=== PATIENT | female | born 1955 | race African-American/Black ===

== ENCOUNTER 2019-04-21 10:12 | Outpatient (CLI) | payer OTHER, SELFPAY ==
--- NOTE | 2019-04-21 10:21 | MM_ITS ---
WS: [id number] BILATERAL DIGITAL SCREENING MAMMOGRAM WITH CAD CLINICAL INFORMATION: SCREENING HISTORY: Screening mammogram. No current complaints. COMPARISON: July 26, 2017 TECHNIQUE: Bilateral CC and MLO views. FINDINGS: Fatty-replaced breasts bilaterally. No suspicious focal mass, asymmetry, calcifications, or software applications architect ural distortion. No evidence of malignancy. MM/[place] [id number] IMPRESSION: BI-RADS: 1-Negative FOLLOW UP: 1 Year Follow-up Recommend return to annual screening mammography.
== END 2019-04-21 10:13 | disposition home or self-care (01) ==
LOC: RADSHAW 10:15
PROVIDERS: Family Provider Internal Medicine; Visit Provider Internal Medicine
DX: Z12.31 Encounter for screening mammogram for malignant neoplasm of breast (principal)
CPT/HCPCS: 77067

== ENCOUNTER 2020-07-30 13:44 | Outpatient (CLI) | payer OTHER, SELFPAY ==
--- NOTE | 2020-07-30 14:05 | MM_ITS ---
WS: [id number] BILATERAL DIGITAL SCREENING MAMMOGRAPHY WITH CAD CLINICAL INFORMATION: SCREENING HISTORY: Screening mammogram. No current complaints. COMPARISON: April 21, 2019 TECHNIQUE: Bilateral CC and MLO views. FINDINGS: Scattered fibroglandular densities bilaterally. No suspicious focal mass, asymmetry, calcifications, or architectural distortion. No evidence of malignancy. MM/[place] [id number] IMPRESSION: BI-RADS: 1-Negative FOLLOW UP: 1 Year Follow-up Recommend return to annual screening mammography.
== END 2020-07-30 13:45 | disposition home or self-care (01) ==
LOC: RADSHAW 13:49
PROVIDERS: PCP Internal Medicine; Visit Provider Internal Medicine
DX: Z12.31 Encounter for screening mammogram for malignant neoplasm of breast (principal)
CPT/HCPCS: 77067

== ENCOUNTER 2021-03-28 12:05 | Emergency (ER) | payer OTHER, MEDICARE, SELFPAY ==
[2021-03-28 12:58] VITALS: BP 170/94; PULSE 72; RESP 18; TEMP 36.6; O2SAT 99; BMI 37.5
[2021-03-28 13:32] VITALS: BP 170/94; PULSE 72; RESP 18; TEMP 36.6; O2SAT 99
--- NOTE | 2021-03-28 13:46 | CT_ITS ---
WS: [id number] CT ABDOMEN PELVIS TECHNIQUE: Contrast-enhanced CT of the abdomen and pelvis with coronal and sagittal reformatted image s. CLINICAL INFORMATION: epigastric abdominal pain, N/V COMPARISON: None. DLP: 1733.[address] scans at [facility] use at least one of these dose optimization techniques: automated e xposure control; mA and/or kV adjustment per patient size (includes targeted exams where dose is matc hed to clinical indication); or iterative reconstruction. FINDINGS: Mild diffuse fatty infiltration the liver. Normal portal vein and splenic vein. Normal gallbladder. N ormal spleen. Tiny esophageal hiatal hernia. Diffuse gastric wall thickening can be seen with gastrit is. No evidence of small or large bowel obstruction. Normal portal vein and splenic vein. Adrenal gla nds are normal. Normal renal parenchymal enhancement. No hydronephrosis.Minimal inflammatory strandin g at the head of the pancreas may be due to pancreatitis. Recommend correlation with pancreatic enzym es. No peripancreatic fluid. Normal gallbladder. Tiny fat-containing umbilical hernia. Sigmoid diverticulosis. No evidence of acut e diverticulitis. No free fluid in the abdomen or pelvis. Disc space narrowing L5-S1. Prior hysterec enmanuel. Prominence 13 mm LEFT inguinal lymph nodes nonspecific but may be reactive. CT/CT abdomen pelvis w con* [id number] IMPRESSION: 1. Diffuse fatty infiltration liver. 2. Minimal inflammatory stranding at the head of the pancreas may be due to pa ncreatitis. Recommend correlation with pancreatic enzymes. 3. Tiny esophageal hiatal hernia. 4. Diffuse gastric wall thickening can be seen with gastritis. 5. No small or large bowel obstruction. 6. Diverticulosis. No evidence of acute diverticulitis. 7. Tiny umbilical hernia. 8. Prior hysterectomy. 9. Prominence 13 mm LEFT inguinal lymph nodes nonspecific but may be reactive.
--- NOTE | 2021-03-28 13:46 | ECG_ITS ---
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 Measurements Intervals [place] Rate: 59 P: 43 SC: 167 QRS: -5 QRSD: 92 T: 31 QT: 416 QTc: 413 Interpretive Statements SINUS BRADYCARDIA LOW QRS VOLTAGE IN PRECORDIAL LEADS [QRS DEFLECTION < 1.0 mV IN CHEST LEADS] POSSIBLE ANTERIOR MYOCARDIAL INFARCTION , PROBABLY OLD [30 ms Q WAVE IN V3/V4, OR R < 0.2 mV IN V4] No previous ECG available for comparison Electronically Signed On 03-28-2021 18:06:41 [employer] MICA by Saulo Hamilton M.D. [id number]
--- NOTE | 2021-03-28 13:46 | W.ED.ABDPA2 ---
Documented by User: GUI Marcano 04/02/21 07:02 HPI - Abdominal Pain General: Chief Complaint: Abdominal Pain Stated Complaint: Possible breakthrough of hernia Time Seen by Provider: 03/28/21 13:10 Source: patient Mode of arrival: ambulatory Limitations: no limitations History of Present Illness: Patient is a 65-year-old female who presents to ED today with a complaint of epigastric abdominal pain that initially began 3 to 4 days ago. Patient states she has a known hiatal hernia and feels like this is acutely worsened. She states 2-3 days ago she had multiple episodes of nonbloody and nonbilious emesis as well as had some diarrhea. She states these have subsided but the abdominal pain is persistent. She has been taking her omeprazole as prescribed. She does not complain of any shortness of breath or chest pain. She does have some vague complaints of pain to her shoulders and right neck that she thinks could somehow be related to shingles ? MD elicited complaint: abdominal pain Associated Symptoms: Reports diarrhea, nausea and vomiting; Denies chills, dysuria, fever(s), hematochezia, hematemesis, melena and syncope Review of Systems Const: Denies: fever(s), chills, body aches, fatigue or malaise Card: Denies: chest pain, palpitations, irregular heart rhythm, edema, swelling of feet/ankles, lightheadedness, syncope, pre-syncope, dyspnea on exertion, orthopnea, leg pain with exertion or acrocyanosis Resp: Denies: dyspnea, productive cough, non-productive cough, wheezing, hemoptysis or chest congestion GI: Reports: abdominal pain, nausea, vomiting and diarrhea; Denies: hematemesis, hematochezia or melena : Denies: flank pain, difficulty voiding, dysuria, urinary frequency or urinary urgency Musc: Denies: back pain or extremity pain Skin/Breast: Denies: rash Neuro: Denies: headache(s), numbness in extremities, weakness in extremities, sensory changes or dizziness Physical Exam Const: COMMON NORMALS: no acute distress, patient oriented x3, no limitations and alert GENERAL APPEARANCE: cooperative NUTRITIONAL APPEARANCE: overweight ORIENTATION/CONSCIOUSNESS: Yes awake, Yes oriented to person, Yes oriented to place and Yes oriented to time HENMT: COMMON NORMALS: normocephalic and atraumatic HEAD & SCALP: normocephalic and atraumatic Neck/C-Spine: GENERAL: Yes normal visual inspection Chest: COMMONS NORMALS: normal inspection of the chest and normal palpation of entire chest wall Resp: COMMON NORMALS: normal respiratory effort and clear to auscultation bilaterally AUSCULTATION: clear to auscultation bilaterally Cardio: COMMON NORMALS: regular rate and regular rhythm RATE: regular rate RHYTHM: regular rhythm GI: COMMON NORMALS: Normal to inspection, nondistended, normoactive bowel sounds present, Soft to palpation, No hepatosplenomegaly present and no masses PALPATION: Yes Soft to palpation, Yes Tenderness to palpation present (GI) (epigastric) and Yes No hepatosplenomegaly present : COMMON NORMALS: Yes no CVA tenderness BLADDER/KIDNEY EXAM: Yes no CVA tenderness Back/Pelvis: COMMON NORMALS: no CVA tenderness, thoracic and lumbar spine normal to inspection, no thoracic nor lumbar tenderness and thoraco-lumbar ROM normal Extremity: COMMON NORMALS: normal to inspection, no clubbing, cyanosis or edema, no calf tenderness and no pedal edema GENERAL: Yes normal exam except as noted Neuro: COMMON NORMALS: patient oriented x3, moves all extremities, no focal motor deficits and no sensory deficits noted SENSORIUM/ORIENTATION: Yes alert, Yes oriented to person, Yes oriented to place and Yes oriented to time Skin: COMMON NORMALS: no rashes or lesions noted GENERAL SKIN EXAM: no rashes or lesions noted Course Vital Signs: Vital signs: Vital Signs Temperature 97.8 F 03/28/21 15:14 Pulse Rate 67 03/28/21 16:38 Respiratory Rate 16 03/28/21 16:38 Blood Pressure 114/74 03/28/21 16:38 Pulse Oximetry 98 03/28/21 16:38 MDM - Abdominal Pain Medical Decision Making Patient is a 65-year-old female here with complaints of epigastric pain. Patient appears in no acute distress. Her vital signs are stable. Lab work is unremarkable. Chest pain work-up initiated secondary to agent complaints of epigastric pain with vague complaints to neck and shoulder. EKG without ischemic changes. Baseline troponin is negative. CXR is normal. CT of her abdomen/pelvis shows a fatty liver, possible minimal inflammatory stranding around the pancreas although her lipase is normal, mild gastritis, and a small hiatal hernia. She states she is supposed to be taking her PPI twice daily but has only been taking it once a day. Recommend she begin taking this twice daily and follow-up with her primary care provider if symptoms persist. I do not see anything emergent at this time to be causing her discomfort. Strict return to ED precautions verbally given. Lab Data I reviewed the patient's lab results. : 03/28/21 15:06 03/28/21 15:06 Labs/Radiology: Radiology Impressions Abdomen/Pelvis CT 03/28/21 13:46 IMPRESSION: 1. Diffuse fatty infiltration liver. 2. Minimal inflammatory stranding at the head of the pancreas may be due to pancreatitis. Recommend correlation with pancreatic enzymes. 3. Tiny esophageal hiatal hernia. 4. Diffuse gastric wall thickening can be seen with gastritis. 5. No small or large bowel obstruction. 6. Diverticulosis. No evidence of acute diverticulitis. 7. Tiny umbilical hernia. 8. Prior hysterectomy. 9. Prominence 13 mm LEFT inguinal lymph nodes nonspecific but may be reactive. Chest X-Ray 03/28/21 14:00 IMPRESSION: No acute findings. Laboratory Results WBC 7.3 10^3/uL (4.0-10.0) 03/28/21 15:06 RBC 4.73 10^6/uL (4.1-5.3) 03/28/21 15:06 Hgb 14.5 g/dL (11.5-15.3) 03/28/21 15:06 Hct 44.1 % (37.0-47.0) 03/28/21 15:06 MCV 93.2 fl (81-99) 03/28/21 15:06 MCH 30.7 pg (28.0-34.0) 03/28/21 15:06 MCHC 32.9 g/dL (30.0-36.0) 03/28/21 15:06 RDW 12.6 % (12.1-15.1) 03/28/21 15:06 Plt Count 247 10^3/cmm (130-400) 03/28/21 15:06 MPV 11.0 fL (7.4-10.4) H 03/28/21 15:06 Neut % (Auto) 65.5 % 03/28/21 15:06 Lymph % (Auto) 26.6 % 03/28/21 15:06 [place] % (Auto) 7.0 % 03/28/21 15:06 Eos % (Auto) 0.3 % 03/28/21 15:06 Baso % (Auto) 0.5 % 03/28/21 15:06 Neut # (Auto) 4.80 10^3/uL (1.8-7.7) 03/28/21 15:06 Lymph # (Auto) 2.0 10^3/uL (0.8-4.8) 03/28/21 15:06 [place] # (Auto) 0.5 10^3/uL (0.2-0.9) 03/28/21 15:06 Eos # (Auto) 0.0 10^3/uL (0.0-0.8) 03/28/21 15:06 Baso # (Auto) 0.0 10^3/uL (0.0-0.1) 03/28/21 15:06 Nucleated RBC % (auto) 0 % 03/28/21 15:06 Nucleated RBCs # 0.0 /100WBC 03/28/21 15:06 Sodium 140 mmol/L (136-145) 03/28/21 15:06 Potassium 4.0 mmol/L (3.5-5.1) 03/28/21 15:06 Chloride 103 mmol/L (98-107) 03/28/21 15:06 Carbon Dioxide 24 mmol/L (22-29) 03/28/21 15:06 Anion Gap 17.0 (5-19) 03/28/21 15:06 BUN 18 mg/dL (8-23) 03/28/21 15:06 Creatinine 0.8 mg/dL (0.5-0.9) 03/28/21 15:06 GFR Calculation 86.6 mL/min (90-130) L 03/28/21 15:06 Glucose 107 mg/dL (65-115) 03/28/21 15:06 Calculated Osmolality 292 mOsm/kg (285-295) 03/28/21 15:06 Calcium 9.8 mg/dL (8.5-10.5) 03/28/21 15:06 Total Bilirubin 0.4 mg/dL (0.15-1.2) 03/28/21 15:06 AST 52 U/L (0-32) H 03/28/21 15:06 ALT 52 U/L (0-33) H 03/28/21 15:06 Alkaline Phosphatase 157 IU/L (35-105) H 03/28/21 15:06 Troponin T Baseline 10 ng/L (0-10) 03/28/21 15:06 Total Protein 7.4 g/dL (6.6-8.7) 03/28/21 15:06 Albumin 4.9 g/dL (3.5-5.2) 03/28/21 15:06 Globulin 2.5 g/dL (1.3-4.6) 03/28/21 15:06 Lipase 18 U/L (13-60) 03/28/21 15:06 Urine Color Yellow (Yellow) 03/28/21 14:22 Urine Appearance Clear (CLEAR) 03/28/21 14:22 Urine pH 5 (5-7) 03/28/21 14:22 Ur Specific [place] 1.025 (1.005-1.030) 03/28/21 14:22 Urine Protein Neg (Negative) 03/28/21 14:22 Urine Glucose (UA) Norm (Normal) 03/28/21 14:22 Urine Ketones 2+ (Negative) H 03/28/21 14:22 Urine Blood Neg (Negative) 03/28/21 14:22 Urine Nitrate Negative (Negative) 03/28/21 14:22 Urine Bilirubin Neg (Negative) 03/28/21 14:22 Urine Urobilinogen Norm mg/dL (Negative) 03/28/21 14:22 Ur Leukocyte Esterase Negative (Negative) 03/28/21 14:22 Discharge Plan Discharge Patient Disposition: Home Clinical Impression: Abdominal pain, epigastric Condition: Stable Discharge Orders: Discharge ED (Routine); Ordered 03/28/21 Ordered By: Brittany Simmons Referrals: Vivian Castorena M.D [Primary Care Provider] - Patient Instructions: Abdominal Pain (ED) Activity Restrictions/Additional Instructions: As we discussed we will have case management set you up with a primary care provider. Please return to the emergency department for worsening or severe abdominal pain, repetitive episodes of vomiting, bloody vomit, fevers, severe chest or back pain, or any other concerns you may have. Hope you begin to feel better soon. Coding Level of Care Code ED Pollution Control Chemist for Chg Fwd Exam Comprehensive Documented by User: Filemon Matt DO 04/04/21 05:57 HPI - Abdominal Pain General: Chief Complaint: Abdominal Pain Stated Complaint: Possible breakthrough of hernia Time Seen by Provider: 03/28/21 13:10 Course Vital Signs: Vital signs: Vital Signs Temperature 97.8 F 03/28/21 15:14 Pulse Rate 67 03/28/21 16:38 Respiratory Rate 16 03/28/21 16:38 Blood Pressure 114/74 03/28/21 16:38 Pulse Oximetry 98 03/28/21 16:38 MDM - Abdominal Pain Medical Decision Making Patient is a 65-year-old female here with complaints of epigastric pain. Patient appears in no acute distress. Her vital signs are stable. Lab work is unremarkable. Chest pain work-up initiated secondary to agent complaints of epigastric pain with vague complaints to neck and shoulder. EKG without ischemic changes. Baseline troponin is negative. CXR is normal. CT of her abdomen/pelvis shows a fatty liver, possible minimal inflammatory stranding around the pancreas although her lipase is normal, mild gastritis, and a small hiatal hernia. She states she is supposed to be taking her PPI twice daily but has only been taking it once a day. Recommend she begin taking this twice daily and follow-up with her primary care provider if symptoms persist. I do not see anything emergent at this time to be causing her discomfort. Strict return to ED precautions verbally given. Chart reviewed and patient discussed with midlevel. Agree with assessment and plan. Lab Data : 03/28/21 15:06 03/28/21 15:06 Labs/Radiology: Radiology Impressions Abdomen/Pelvis CT 03/28/21 13:46 IMPRESSION: 1. Diffuse fatty infiltration liver. 2. Minimal inflammatory stranding at the head of the pancreas may be due to pancreatitis. Recommend correlation with pancreatic enzymes. 3. Tiny esophageal hiatal hernia. 4. Diffuse gastric wall thickening can be seen with gastritis. 5. No small or large bowel obstruction. 6. Diverticulosis. No evidence of acute diverticulitis. 7. Tiny umbilical hernia. 8. Prior hysterectomy. 9. Prominence 13 mm LEFT inguinal lymph nodes nonspecific but may be reactive. Chest X-Ray 03/28/21 14:00 IMPRESSION: No acute findings. Laboratory Results WBC 7.3 10^3/uL (4.0-10.0) 03/28/21 15:06 RBC 4.73 10^6/uL (4.1-5.3) 03/28/21 15:06 Hgb 14.5 g/dL (11.5-15.3) 03/28/21 15:06 Hct 44.1 % (37.0-47.0) 03/28/21 15:06 MCV 93.2 fl (81-99) 03/28/21 15:06 MCH 30.7 pg (28.0-34.0) 03/28/21 15:06 MCHC 32.9 g/dL (30.0-36.0) 03/28/21 15:06 RDW 12.6 % (12.1-15.1) 03/28/21 15:06 Plt Count 247 10^3/cmm (130-400) 03/28/21 15:06 MPV 11.0 fL (7.4-10.4) H 03/28/21 15:06 Neut % (Auto) 65.5 % 03/28/21 15:06 Lymph % (Auto) 26.6 % 03/28/21 15:06 [place] % (Auto) 7.0 % 03/28/21 15:06 Eos % (Auto) 0.3 % 03/28/21 15:06 Baso % (Auto) 0.5 % 03/28/21 15:06 Neut # (Auto) 4.80 10^3/uL (1.8-7.7) 03/28/21 15:06 Lymph # (Auto) 2.0 10^3/uL (0.8-4.8) 03/28/21 15:06 [place] # (Auto) 0.5 10^3/uL (0.2-0.9) 03/28/21 15:06 Eos # (Auto) 0.0 10^3/uL (0.0-0.8) 03/28/21 15:06 Baso # (Auto) 0.0 10^3/uL (0.0-0.1) 03/28/21 15:06 Nucleated RBC % (auto) 0 % 03/28/21 15:06 Nucleated RBCs # 0.0 /100WBC 03/28/21 15:06 Sodium 140 mmol/L (136-145) 03/28/21 15:06 Potassium 4.0 mmol/L (3.5-5.1) 03/28/21 15:06 Chloride 103 mmol/L (98-107) 03/28/21 15:06 Carbon Dioxide 24 mmol/L (22-29) 03/28/21 15:06 Anion Gap 17.0 (5-19) 03/28/21 15:06 BUN 18 mg/dL (8-23) 03/28/21 15:06 Creatinine 0.8 mg/dL (0.5-0.9) 03/28/21 15:06 GFR Calculation 86.6 mL/min (90-130) L 03/28/21 15:06 Glucose 107 mg/dL (65-115) 03/28/21 15:06 Calculated Osmolality 292 mOsm/kg (285-295) 03/28/21 15:06 Calcium 9.8 mg/dL (8.5-10.5) 03/28/21 15:06 Total Bilirubin 0.4 mg/dL (0.15-1.2) 03/28/21 15:06 AST 52 U/L (0-32) H 03/28/21 15:06 ALT 52 U/L (0-33) H 03/28/21 15:06 Alkaline Phosphatase 157 IU/L (35-105) H 03/28/21 15:06 Troponin T Baseline 10 ng/L (0-10) 03/28/21 15:06 Total Protein 7.4 g/dL (6.6-8.7) 03/28/21 15:06 Albumin 4.9 g/dL (3.5-5.2) 03/28/21 15:06 Globulin 2.5 g/dL (1.3-4.6) 03/28/21 15:06 Lipase 18 U/L (13-60) 03/28/21 15:06 Urine Color Yellow (Yellow) 03/28/21: Urine Appearance Clear (CLEAR) 03/28/21: Urine pH 5 (5-7) 03/28/21 14:22 Ur Specific [place] 1.025 (1.005-1.030) 03/28/21 14:22 Urine Protein Neg (Negative) 03/28/21 14:22 Urine Glucose (UA) Norm (Normal) 03/28/21 14:22 Urine Ketones 2+ (Negative) H 03/28/21 14:22 Urine Blood Neg (Negative) 03/28/21 14:22 Urine Nitrate Negative (Negative) 03/28/21 14:22 Urine Bilirubin Neg (Negative) 03/28/21 14:22 Urine Urobilinogen Norm mg/dL (Negative) 03/28/21 14:22 Ur Leukocyte Esterase Negative (Negative) 03/28/21 14:22 Discharge Plan Discharge Patient Disposition: Home Clinical Impression: Abdominal pain, epigastric Condition: Stable Discharge Orders: Discharge ED (Routine); Ordered 03/28/21 Ordered By: Brittany Simmons Referrals: Vivian Castorena M.D [Primary Care Provider] - Patient Instructions: Abdominal Pain (ED) Activity Restrictions/Additional Instructions: As we discussed we will have case management set you up with a primary care provider. Please return to the emergency department for worsening or severe abdominal pain, repetitive episodes of vomiting, bloody vomit, fevers, severe chest or back pain, or any other concerns you may have. Hope you begin to feel better soon. Coding Level of Care Code ED Pollution Control Chemist for Paul Fwwhitney Exam Comprehensive
--- NOTE | 2021-03-28 14:00 | XRR_ITS ---
PROCEDURE INFORMATION: Exam: XR Chest Exam date and time: 03/28/2021 2:00 PM Age: 65 years old Clinical indication: Other: Upper abdominal pain; Patient HX: Hiatal hernia protruding TECHNIQUE: Imaging protocol: XR of the chest. Views: 1 view. COMPARISON: MRI Shoulder w/o LEFT* [id number] 10/01/2014 12:59 PM FINDINGS: Lungs: No consolidation. Pleural spaces: No pleural effusion. No pneumothorax. Heart/Mediastinum: No cardiomegaly. Bones/joints: Visualized osseous structures are intact. XR/XR chest 1V portable [id number] IMPRESSION: No acute findings.
[2021-03-28 14:42] LABS: Add Urine Microscopic? NO; Charge for UA Resulting for Rev
[2021-03-28 14:55] LABS: Bilirubin Urine Neg (Negative); Blood Urine Neg (Negative); Glucose Urine UA Norm (Normal); Ketones Urine 2+ (Negative); Leukocyte Esterase Urine Negative (Negative); Nitrate Urine Negative (Negative); Protein Urine Neg (Negative); Specific Gravity, Urine 1.025 (1.005-1.030); Urine Appearance Clear (CLEAR); Urine Color Yellow (Yellow); Urobilinogen Urine Norm (Negative); pH Urine 5 (5-7)
[2021-03-28 15:14] VITALS: BP 170/94; PULSE 72; RESP 18; TEMP 36.6; O2SAT 99
[2021-03-28 15:16] LABS: Basophils % 0.5 %; Eosinophils % 0.3 %; Hematocrit 44.1 % (37.0-47.0); Hemoglobin 14.5 g/dL (11.5-15.3); Lymphocytes % 26.6 %; Mean Corpuscular HGB Conc 32.9 g/dL (30.0-36.0); Mean Corpuscular Hemoglobin 30.7 pg (28.0-34.0); Mean Corpuscular Volume 93.2 fl (81-99); Monocytes # 0.5 10^3/uL (0.2-0.9); Neutrophils % 65.5 %; Nucleated Red Blood Cells % 0 %; Platelet Count 247 10^3/cmm (130-400); Red Blood Count 4.73 10^6/uL (4.1-5.3); Red Cell Distribution Width 12.6 % (12.1-15.1); White Blood Count 7.3 10^3/uL (4.0-10.0)
--- NOTE | 2021-03-28 15:46 | ECG_ITS ---
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 Measurements Intervals [place] Rate: 63 P: 37 VA: 176 QRS: -18 QRSD: 99 T: 30 QT: 398 QTc: 408 Interpretive Statements SINUS RHYTHM LOW QRS VOLTAGE IN PRECORDIAL LEADS [QRS DEFLECTION < 1.0 mV IN CHEST LEADS] MINIMAL VOLTAGE CRITERIA FOR LVH, CONSIDER NORMAL VARIANT [MEETS CRITERIA IN ONE OF: R(aVL), S(V1), R(V5), R(V5/V6)+S(V1)] POSSIBLE ANTERIOR MYOCARDIAL INFARCTION , PROBABLY OLD [30 ms Q WAVE IN V3/V4, OR R < 0.2 mV IN V4] Compared to ECG 03/28/2021 14:27:34 Sinus bradycardia no longer present Myocardial infarct finding still present Electronically Signed On 03-28-2021 18:07:49 PATTERN CHANGER by Saulo Hamilton M.D. [id number]
[2021-03-28 15:49] LABS: Alanine Aminotransferase 52 U/L (0-33); Albumin Level 4.9 g/dL (3.5-5.2); Alkaline Phosphatase 157 IU/L (35-105); Blood Urea Nitrogen 18 mg/dL (8-23); Calcium 9.8 mg/dL (8.5-10.5); Carbon Dioxide 24 mmol/L (22-29); Chloride 103 mmol/L (98-107); Creatinine Clr Calc Pharmacy 86.7244; Globulin 2.5 g/dL (1.3-4.6); Glomerular Filtration Rate 86.6 mL/min (90-130); Glucose 107 mg/dL (65-115); Lipase 18 U/L (13-60); Osmolality Calculated 292 mOsm/kg (285-295); Sodium 140 mmol/L (136-145); Total Bilirubin 0.4 mg/dL (0.15-1.2); Total Protein 7.4 g/dL (6.6-8.7)
[2021-03-28 15:51] LABS: Troponin(5th) Baseline 10 ng/L (0-10)
[2021-03-28 15:55] LABS: Aspartate Amino Transferase 52 U/L (0-32)
[2021-03-28] MEDS: iohexol 300 mg/mL 100 mL Btl IV (16:11)
[2021-03-28 16:38] VITALS: BP 114/74; PULSE 67; RESP 16; O2SAT 98
--- NOTE | 2021-04-09 09:57 | DCPLANNER ---
late entry - spring encaser had message to speak with patient about getting a primary care physician. poultry barn manager was unable to speak with patient at this time, and unable to leave a voicemail.
== END 2021-03-28 17:16 | disposition home or self-care (01) ==
PROVIDERS: Emergency Provider Physician Assistant; PCP Internal Medicine
DX: R10.13 Epigastric pain (principal)
CPT/HCPCS: 71045; 74177; 80053; 81003; 83690; 84484; 85025; 93005; 99283; Q9967

== ENCOUNTER 2021-08-12 10:52 | Outpatient (CLI) | payer OTHER, SELFPAY ==
--- NOTE | 2021-08-12 11:00 | MM_ITS ---
WS: [id number] BILATERAL SCREENING DIGITAL BREAST TOMOSYNTHESIS MAMMOGRAM WITH CAD HISTORY: SCREENING COMPARISON: 07/30/2020 and 04/21/2019 Bilateral CC and MLO views with tomosynthesis and synthetic mammography submitted. Computer aided det ection analyzed. Breast composition: There are scattered areas of fibroglandular density. No suspicious masses, microc alcifications or architectural distortion. MM/[place] [id number] IMPRESSION: BI-RADS: 1-Negative FOLLOW UP: 1 Year Follow-up
== END 2021-08-12 10:53 | disposition home or self-care (01) ==
PROVIDERS: PCP Internal Medicine; Visit Provider Internal Medicine
DX: Z12.31 Encounter for screening mammogram for malignant neoplasm of breast (principal)
CPT/HCPCS: 77063; 77067

== ENCOUNTER 2023-05-09 10:37 | Outpatient (CLI) | payer OTHER, SELFPAY ==
--- NOTE | 2023-05-09 11:00 | MM_ITS ---
WS: [id number] DIAGNOSTIC BILATERAL DIGITAL BREAST TOMOSYNTHESIS MAMMOGRAPHY WITH CAD Bilateral breast ultrasound, limited HISTORY: CRUSHING PAIN BILAT COMPARISON: 08/12/2021 and 07/30/2020 TECHNIQUE: Bilateral craniocaudad, mediolateral oblique, and mediolateral views are submitted with to mosynthesis and SM. Spot compression LEFT and RIGHT MLO. Computer aided detection utilized. Breast composition: The breasts are almost entirely fatty. No suspicious mass or calcification. No sk in thickening. No abnormality. Bilateral breast ultrasound, limited. Ultrasound of the each breast in the area of pain is performed. There is no abnormality identified. IMPRESSION: MM/[place] [id number] BI-RADS: 1-Negative FOLLOW UP: 1 Year Follow-up
--- NOTE | 2023-05-09 11:40 | US_ITS ---
WS: [id number] DIAGNOSTIC BILATERAL DIGITAL BREAST TOMOSYNTHESIS MAMMOGRAPHY WITH CAD Bilateral breast ultrasound, limited HISTORY: CRUSHING PAIN BILAT COMPARISON: 08/12/2021 and 07/30/2020 TECHNIQUE: Bilateral craniocaudad, mediolateral oblique, and mediolateral views are submitted with to mosynthesis and SM. Spot compression LEFT and RIGHT MLO. Computer aided detection utilized. Breast composition: The breasts are almost entirely fatty. No suspicious mass or calcification. No sk in thickening. No abnormality. Bilateral breast ultrasound, limited. Ultrasound of the each breast in the area of pain is performed. There is no abnormality identified. IMPRESSION: US/US breast BI limited* [id number] BI-RADS: 1-Negative FOLLOW UP: 1 Year Follow-up
== END 2023-05-09 10:38 | disposition home or self-care (01) ==
LOC: RAD 10:39
PROVIDERS: PCP Internal Medicine; Visit Provider Hospitalist
DX: N64.4 Mastodynia (principal)
CPT/HCPCS: 76642; 77062; G0279

== ENCOUNTER 2023-06-15 10:58 | Outpatient (CLI) | payer OTHER, SELFPAY ==
--- NOTE | 2023-06-15 | ECG_ITS ---
[facility] Test Date: 2023-06-15 Pat Name: Kerri Oh Department: Room: Gender: Female Employment Security Officer: : 1955 Requested By: Manuel Brambila Order Number: [id number] Rivera MD: Saulo Hamilton M.D. Interpretive Statements NAME OF STUDY: TREADMILL STRESS TEST INDICATION: [Chest Pain] EXERCISE DATA: The patient was exercised by Lauro protocol. Baseline heart rate was 91 beats per minute. Baseline blood pressure was 146/83 millimeters of mercury. Maximal predicted heart rate was 151 beats per minute. Maximum heart rate achieved was 152, which was 100% of the maximum predicted heart rate. Maximum blood pressure was 146/75 millimeters of mercury. Total exercise time was 3 minutes and 40 seconds. Maximum METs achieved was 7. The reason for ending the test was completion of protocol. The patient complained of shortness of breath, chest discomfort and leg fatigue during the stress test, which then resolved at the end of the test. ELECTROCARDIOGRAM: BASELINE: Showed sinus rhythm, normal axis, no significant ST-T changes at the baseline noted. [] EXERCISE: At the peak exercise level, [] Significant artifact noted at exercise. Can not be interpreted for ruling out ischemia RECOVERY: During the recovery period, heart rate dropped appropriately. No significant ST-T changes in the recovery suggestive of ischemia noted. [] CONCLUSION: 1. Exercise capacity is fair 2. Heart rate response was appropriate 3. Blood pressure response was appropriate 4. Symptoms suggestive of ischemia 5. Stress test is indeterminate because significant artifact at exercise making EKG uninterpretable. However patient did have chest pain symptoms. Recommend stress test with imaging for assessing ischemia Electronically Signed On 07-03-2023 9:17:54 CDT by Saulo Hamilton M.D. [email or web address] [id number]
--- NOTE | 2023-06-15 11:36 | USCV_ITS ---
Oh Kerri Age: 67 Gender: F : 1955 Exam Date: 06/15/2023 11:46 Ordering Phys: Manuel Brambila MD Technologist: Anton Coffey Exam Location: [facility] [place] Indication: occasional chest pressure BP: 114 / 74 HR: 56 Rhythm: Sinus Technical Quality: Adequate MEASUREMENTS (Male / Female) Normal Values 2D ECHO LV Diastolic Diameter PLAX 5.4 cm 4.2 - 5.9 / 3.9 - 5.3 cm IVS Diastolic Thickness 1.0 cm 0.6 - 1.0 / 0.6 - 0.9 cm IVS Systolic Thickness 1.6 cm LVPW Diastolic Thickness 1.4 cm 0.6 - 1.0 / 0.6 - 0.9 cm LVPW Systolic Thickness 1.7 cm LVOT Diameter 2.0 cm LV Ejection Fraction 2D Teich 75.2 % LV Ejection Fraction MOD 2C 55.9 % LV Ejection Fraction 2C AL 59.8 % LA Diameter 3.9 cm RA Systolic Volume 4C AL 23.8 ml RA Systolic Volume 4C MOD 23.3 ml LA Sys Volume AL 52.3 cm cubed LA Sys Volume Index AL 23.1 cm cubed/m squared Aorta at Sinotubular Diameter 2.5 cm M-MODE LA Ao Ratio MM 1.3 AV Cusp Separation MM 2.0 cm DOPPLER AV Peak Velocity 95.0 cm/s LVOT Peak Velocity 83.0 cm/s AV Area Cont Eq vti 2.6 cm squared AV Area Cont Eq pk 2.7 cm squared MV Peak Velocity 89.0 cm/s MV Area PHT 4.0 cm squared Mitral E to A Ratio 0.8 TV Peak Velocity 174.0 cm/s TR Peak Velocity 201.0 cm/s TR Peak Gradient 16.2 mmHg TR Mean Velocity 153.0 cm/s TR Mean Gradient 10.1 mmHg TR Velocity Time Integral 56.4 cm PV Peak Velocity 75.0 cm/s RV Ejection Time 0.3 s FINDINGS Left Ventricle Left ventricle is normal in size. LV systolic function is normal with EF of 50-55%. No regional wall motion abnormalities are seen. Grade 1 diastolic dysfunction. Right Ventricle Normal in size and function Right Atrium Normal in size Left Atrium Normal in size Mitral Valve Structurally normal mitral valve. Trace mitral regurgitation Aortic Valve Aortic valve is thickened. No significant stenosis or regurgitation. Tricuspid Valve Trace tricuspid regurgitation. Insufficient TR jet to calculate RVSP. Pulmonic Valve Not well visualized Pericardium Normal Aorta Normal in size IVC Not well visualized CONCLUSIONS LV systolic function is normal with EF of 50 to 55%. Grade 1 diastolic dysfunction. Trace mitral regurgitation Trace tricuspid regurgitation No comparison studies are available. Saulo Hamilton MD (Electronically Signed) Final Date: 24 Jun 2023 14:11 S
[2023-06-15 12:27] VITALS: BMI 27.3
[2023-06-15 13:29] VITALS: BP 116/73; PULSE 68
== END 2023-06-15 10:59 | disposition home or self-care (01) ==
LOC: CDL 10:59
PROVIDERS: PCP Internal Medicine; Visit Provider Hospitalist
DX: R07.9 Chest pain, unspecified (principal)
CPT/HCPCS: 93017; 93306

== ENCOUNTER 2023-08-30 13:03 | Outpatient (CLI) | payer OTHER, SELFPAY ==
--- NOTE | 2023-08-30 | USCV_ITS ---
Dobutamine Stress Echo Kerri Oh Age: 68 Gender: F : 1955 Exam Date: 08/30/2023 14:07 Ordering Phys: Moira Pascal MD Technologist: Exam Location: [facility] [place] Indication: Chest Pain Rhythm: Sinus Patient History: Chest pain Cardiac Medications: NONE Medications in past 24 hours: NONE Contrast: Total Dose (mL): Stress Results Protocol: Pharmacologic Peak Dose (???g/kg/min): 30 Duration (min:sec): 08:10 Atropine:(mg) 0.5 Target HR: 128 Double Product: [id number] Resting HR: 73 Resting BP: 134 / 70 Peak HR: 163 Peak BP: 164 / 80 Max Predicted HR: 150 109 % Max Predicted HR Stress Summary: The hemodynamic response to stress was normal. BP Response: Normal Reason for Termination: The patients target heart rate was achieved Cardiac Symptoms: Short of Breath; palpiations; dizziness ECG Analysis Resting EKG: Please see separate report Stress EKG: Please see separate report Arrhythmia: Please see separate report MEASUREMENTS (Male/Female) Normal Values FINDINGS The baseline echocardiogram revealed normal LV size and ejection fraction. There was mild hypokinesia of the basal inferior wall segment. The study was of suboptimal quality because of poor ultrasonic visualization of all the segments. With the low and peak dobutamine infusion, there was persistent hypokinesia of the basal inferior wall segment During the recovery phase, the segmental wall motion returned to the baseline CONCLUSIONS 1. Persistent hypokinesia of the basal inferior wall segment with the dobutamine infusion, suggesting possible ischemia/infarct in the distribution of the right coronary artery. 2. Because of theBecause of the poor visualization of all the segments, the study is somewhat compromised Dr Brenda Schmidt MD [facility] (Electronically Signed) Final Date: 31 August 2023 01:06 S
--- NOTE | 2023-08-30 | ECG_ITS ---
[facility] Test Date: 2023-08-30 Pat Name: Kerri Oh Department: Room: Gender: Female Secretary Specialist: : 1955 Requested By: Moira Pascal Order Number: [id number] Nicole MD: Brenda Schmidt M.D. Interpretive Statements NAME OF STUDY: DOBUTAMINE STRESS ECHOCARDIOGRAM INDICATION: Chest Pain PROCEDURE: At the baseline, the blood pressure was 134/70 with a heart rate of 72. The electrocardiogram showed normal sinus rhythm with poor R wave progression. Nonspecific T wave changes. Occasional PVCs.. The dobutamine was infused over a period of 5. The maximum heart rate obtained was 162 (108% of the maximum predicted heart rate). The blood pressure at that time was 127/55 mmHg. The patient did not have any chest pain or any significant electrocardiogram changes with the dobutamine infusion. More frequent PVCs were noted during the dobutamine infusion. But towards the peak infusion there was disappearance of the PVCs the physical examination remained unchanged. No arrhythmias were seen on the monitor. During the recovery phase, the patient did not have any specific symptoms. The blood pressure at the end of the recovery phase was 118/68 with a heart rate of 80 bpm Echocardiographic pictures were taken at the baseline, low and Peak dobutamine infusion and during the recovery phase CONCLUSION: 1. No significant EKG changes with the dobutamine fusion 2. Dobutamine induced premature ventricular contractions 3. Normal heart rate and blood pressure response to dobutamine infusion 4. Echocardiographic pictures were taken at the baseline, peak exercise and during the recovery phase. 5. Please see separate report for the echocardiographic response to dobutamine infusion. Electronically Signed On 08-30-2023 23:29:03 CDT by Brenda Schmidt M.D. [id number]
[2023-08-30 13:34] VITALS: BMI 36.0
[2023-08-30] MEDS: DOBUTtamine 200 MG in sodium chloride 0.9% 34 ML 15.65 MG IV (14:17)
[2023-08-30] MEDS: atropine 0.1 mg/mL Syr 10 mL 0.5 MG IVP (14:24)
[2023-08-30] MEDS: metoprolol tartrate 1 mg/1 mL SDV 5 mL 5 MG IVP (14:27)
[2023-08-30 14:57] VITALS: BP 123/84; PULSE 72
== END 2023-08-30 13:04 | disposition home or self-care (01) ==
LOC: CDL 13:04
PROVIDERS: PCP Internal Medicine; Visit Provider Family Medicine
DX: R07.9 Chest pain, unspecified (principal); R94.39 Abnormal result of other cardiovascular function study
CPT/HCPCS: 36415; 93017; 93350; J0461; J1250; J3490; J7050

== ENCOUNTER → 2023-12-07 09:05 | Outpatient (BNVA) | payer OTHER, SELFPAY | PROVIDERS: PCP Internal Medicine; Visit Provider Internal Medicine Cardiovascular Disease | DX: I49.8 Other specified cardiac arrhythmias (principal); R07.9 Chest pain, unspecified | CPT/HCPCS: 93005; 99204 ==

== ENCOUNTER 2023-12-21 11:14 | Emergency (ER) | payer OTHER, SELFPAY ==
[2023-12-21 11:22] VITALS: BP 173/106; PULSE 86; RESP 18; TEMP 36.7; O2SAT 96; BMI 38.2
--- NOTE | 2023-12-21 11:35 | CT_ITS ---
WS: [id number] CT HEAD TECHNIQUE: Noncontrast CT of the head obtained from the skullbase to the vertex. CLINICAL INFORMATION: parasthesia COMPARISON: None. DLP: 1131.[address] scans at [facility] use at least one of these dose optimization techniques: automated e xposure control; mA and/or kV adjustment per patient size (includes targeted exams where dose is matc hed to clinical indication); or iterative reconstruction. FINDINGS: No evidence of intracranial hemorrhage or mass effect. Ventricular system and basal cisterns are lau nt. Mild small vessel changes with no significant parenchymal volume loss. No extra-axial fluid colle ctions. No evidence of mass or mass effect. Paranasal sinuses and mastoid air cells are well aerated. .Normal visualized soft tissues. CT/CT head wo con* [id number] IMPRESSION: 1. No evidence of intracranial hemorrhage or mass effect. 2. No acute intracranial findings.
--- NOTE | 2023-12-21 11:35 | XR_ITS ---
WS: [id number] XR chest 1V portable [id number] REASON FOR EXAM: Weakness FINDINGS: The chest is unchanged compared to 03/28/2021. Mild tortuosity of the thoracic aorta with mild cardiomegaly. Calcified granulomas disease in both hemithoraces. No acute pulmonary parenchymal or pleural abnormality. XR/XR chest 1V portable [id number] IMPRESSION: Stable chest with no acute abnormality.
--- NOTE | 2023-12-21 11:36 | ECG_ITS ---
[facility] Test Date: 2023-12-21 Pat Name: Kerri Oh Department: Room: Gender: Female Hole Digger: : 1955 Requested By: Nay Parada Order Number: [id number] Nicole MD: Perez Yung M.D. Measurements Intervals [place] Rate: 72 P: 57 DE: 163 QRS: -8 QRSD: 96 T: 32 QT: 356 QTc: 392 Interpretive Statements SINUS RHYTHM LOW QRS VOLTAGE IN PRECORDIAL LEADS [QRS DEFLECTION < 1.0 mV IN CHEST LEADS] MINIMAL VOLTAGE CRITERIA FOR LVH, CONSIDER NORMAL VARIANT [MEETS CRITERIA IN ONE OF: R(aVL), S(V1), R(V5), R(V5/V6)+S(V1)] Compared to ECG 12/07/2023 09:10:13 Low QRS voltage now present Electronically Signed On 12-21-2023 18:11:10 FELT HAT FLANGING OPERATOR by Perez Yung M.D. [id number] reena
[2023-12-21 11:51] LABS: Basophils # 0.1 10^3/uL (0.0-0.1); Basophils % 0.8 %; Eosinophils % 0.5 %; Hematocrit 41.6 % (36-47); Lymphocytes # 1.7 10^3/uL (0.8-4.8); Lymphocytes % 23.4 %; Mean Corpuscular HGB Conc 32.2 g/dL (30-55); Mean Corpuscular Hemoglobin 30.1 pg (27-33); Mean Corpuscular Volume 93.5 fl (85-98); Mean Platelet Volume 11.3 fL (7.4-10.4); Monocytes # 0.5 10^3/uL (0.2-0.9); Monocytes % 7.3 %; Neutrophils # 5.02 10^3/uL (1.8-7.7); Neutrophils % 67.6 %; Nucleated Red Blood Cells % 0 %; Platelet Count 225 10^3/cmm (157-399); Red Blood Count 4.45 10^6/uL (3.85-5.65); Red Cell Distribution Width 12.6 % (12.1-15.1); White Blood Count 7.43 10^3/uL (3.29-11.43)
--- NOTE | 2023-12-21 11:55 | W.ED.GENADLT ---
HPI - General Adult General: Chief complaint: General Medical Stated complaint: tireness, blurry eyes, Sob Time Seen by Provider: 12/21/23 11:26 History of Present Illness: 68-year-old female with a history of hypertension who presents to the emergency room with episodes of hot flashes and pain and tingling in her fingers last Sunday. [facility] she needed [facility] to [facility] emergency room for evaluation. She says she is continue to have these hot flashes. She has had no focal motor deficits. No slurred speech. No facial droop. No chest pain. No shortness of breath. No abdominal pain. No nausea or vomiting. She says on the episode she had Sunday her vision became blurred her hands became numb and she felt very hot. She was also dizzy. Related Data Home Medications Medication Instructions Recorded Confirmed tramadol 25 mg tablet 50 mg PO Q4H PRN Pain 12/07/23 12/21/23 acetaminophen 325 mg capsule 325 mg PO QID 12/21/23 12/21/23 omeprazole 40 mg capsule,delayed 40 mg PO DAILY 12/21/23 12/21/23 release Previous Rx's Medication Instructions Recorded isosorbide mononitrate 30 mg 30 mg PO DAILY #90 tabs 12/07/23 tablet,extended release 24 hr metoprolol succinate 25 mg 12.5 mg (1/2 x 25 mg) PO DAILY #45 12/07/23 tablet,extended release 24 hr tabs Allergies Allergy/AdvReac Type Severity Reaction Status Date / Time aspirin Allergy ADR-Cramping Verified 06/15/23 12:27 of the Muscles hydrocortisone Allergy Unknown Verified 12/07/23 09:10 nickel Allergy Unknown Verified 06/15/23 12:27 Sulfa (Sulfonamide Allergy Unknown Verified 06/15/23 12:27 Antibiotics) Review of Systems Narrative: Constitutional symptoms: Negative except as documented in HPI. Skin symptoms: Negative except as documented in HPI. Eye symptoms: Negative except as documented in HPI. ENMT symptoms: Negative except as documented in HPI. Respiratory symptoms: Negative except as documented in HPI. Cardiovascular symptoms: Negative except as documented in HPI. Gastrointestinal symptoms: Negative except as documented in HPI. Genitourinary symptoms: Negative except as documented in HPI. Musculoskeletal symptoms: Negative except as documented in HPI. Neurologic symptoms: Negative except as documented in HPI. Psychiatric symptoms: Negative except as documented in HPI. Endocrine symptoms: Negative except as documented in HPI. [facility] ED PFSH: Social History (Updated 12/07/23 @ 09:20 by Marjorie Lind LPN) Smoking and tobacco/nicotine status: never used tobacco/nicotine Physical Exam Narrative: EXAM NARRATIVE: General: Alert, no acute distress. Skin: Warm, dry. Head: Normocephalic, atraumatic. Neck: Supple, trachea midline. Eye: Extraocular movements are intact. Ears, nose, mouth and throat: mucosa moist. Cardiovascular: Regular, Normal peripheral perfusion. Respiratory: Lungs are clear to auscultation, respirations are non-labored, breath sounds are equal, Symmetrical chest wall expansion. Gastrointestinal: Soft, Nontender, Non distended Musculoskeletal: Normal ROM, no deformity. Neurological: Alert and oriented, No focal neurological deficit observed. Psychiatric: Cooperative, appropriate mood & affect. Course Vital Signs: Vital signs: Vital Signs Temperature 98.1 F 12/21/23 11:22 Pulse Rate 86 12/21/23 11:22 Respiratory Rate 18 12/21/23 11:22 Blood Pressure 173/106 12/21/23 11:22 Pulse Oximetry 96 12/21/23 11:22 Oxygen Delivery Me thod Room Air 12/21/23 11:22 [facility] - General Adult Medical Decision Making Medical decision making: Differential diagnosis including but not limited to and based on the above HPI, review of systems and physical exam: Symptoms are remote and nonfocal really. Will get a CT to rule out any kind of stroke. Labs and urine to rule out infection. If this is all negative [facility] can [facility]. Orders placed to evaluate differential diagnosis based on the above differential, HPI and physical exam EKG: Time 1125. Rate 72. Normal sinus rhythm, nonspecific ST wave changes, no ectopy, normal OR & QRS intervals, This was reviewed and interpreted by myself the ER physician at 1130. Repeat EKG: Time 1346. Rate 69. Normal sinus rhythm, nonspecific ST-T changes, no ectopy, normal OR & QRS intervals, This was reviewed and interpreted by myself the ER physician at 1350. No changes from EKG done previously today in the emergency room. Chest x-ray: No acute process. No infiltrate. No pneumothorax. This was reviewed and interpreted by myself the ER physician. Lab Review: Laboratory results were reviewed and interpreted by myself the emergency room physician. I reviewed the patient's medical record. Reexamination: Lab Data 12/21/23 11:43 12/21/23 11:43 Radiology Impressions Chest X-Ray 12/21/23 11:35 IMPRESSION: Stable chest with no acute abnormality. Head CT 12/21/23 11:35 IMPRESSION: 1. No evidence of intracranial hemorrhage or mass effect. 2. No acute intracranial findings. Laboratory Results WBC 7.43 10^3/uL (3.29-11.43) 12/21/23 11:43 RBC 4.45 10^6/uL (3.85-5.65) 12/21/23 11:43 Hgb 13.40 g/dL (11.27-16.99) 12/21/23 11:43 Hct 41.6 % (36-47) 12/21/23 11:43 MCV 93.5 fl (85-98) 12/21/23 11:43 MCH 30.1 pg (27-33) 12/21/23 11:43 MCHC 32.2 g/dL (30-55) 12/21/23 11:43 RDW 12.6 % (12.1-15.1) 12/21/23 11:43 Plt Count 225 10^3/cmm (157-399) 12/21/23 11:43 MPV 11.3 fL (7.4-10.4) H 12/21/23 11:43 Neut % (Auto) 67.6 % 12/21/23 11:43 Lymph % (Auto) 23.4 % 12/21/23 11:43 Deuel % (Auto) 7.3 % 12/21/23 11:43 Eos % (Auto) 0.5 % 12/21/23 11:43 Baso % (Auto) 0.8 % 12/21/23 11:43 Neut # (Auto) 5.02 10^3/uL (1.8-7.7) 12/21/23 11:43 Lymph # (Auto) 1.7 10^3/uL (0.8-4.8) 12/21/23 11:43 Deuel # (Auto) 0.5 10^3/uL (0.2-0.9) 12/21/23 11:43 Eos # (Auto) 0.0 10^3/uL (0.0-0.8) 12/21/23 11:43 Baso # (Auto) 0.1 10^3/uL (0.0-0.1) 12/21/23 11:43 Nucleated RBC % (auto) 0 % 12/21/23 11:43 Nucleated RBCs # 0.0 /100WBC 12/21/23 11:43 Sodium 140 mmol/L (136-145) 12/21/23 11:43 Potassium 4.2 mmol/L (3.5-5.1) 12/21/23 11:43 Chloride 105 mmol/L (98-107) 12/21/23 11:43 Carbon Dioxide 22 mmol/L (22-29) 12/21/23 11:43 Anion Gap 17.2 (5-19) 12/21/23 11:43 BUN 20 mg/dL (8-23) 12/21/23 11:43 Creatinine 0.8 mg/dL (0.5-0.9) 12/21/23 11:43 GFR Calculation 85.8 mL/min (90-130) L 12/21/23 11:43 Glucose 131 mg/dL (65-115) H 12/21/23 11:43 Calculated Osmolality 294 mOsm/kg (285-295) 12/21/23 11:43 Calcium 9.2 mg/dL (8.5-10.5) 12/21/23 11:43 Total Bilirubin 0.4 mg/dL (0.15-1.2) 12/21/23 11:43 AST 21 U/L (0-32) 12/21/23 11:43 ALT 23 U/L (0-33) 12/21/23 11:43 Alkaline Phosphatase 156 U/L (35-105) H 12/21/23 11:43 Troponin T Baseline 10 ng/L (0-10) 12/21/23 11:43 Total Protein 6.7 g/dL (6.6-8.7) 12/21/23 11:43 Albumin 4.2 g/dL (3.5-5.2) 12/21/23 11:43 Globulin 2.5 g/dL (1.3-4.6) 12/21/23 11:43 Urine Color Yellow (Yellow) 12/21/23 13:23 Urine Appearance Clear (CLEAR) 12/21/23 13:23 Urine pH 5 (5-7) 12/21/23 13:23 Ur Specific [place] 1.025 (1.005-1.030) 12/21/23 13:23 Urine Protein Trace (Negative) 12/21/23 13:23 Urine Glucose (UA) Norm (Normal) 12/21/23 13:23 Urine Ketones Negative (Negative) 12/21/23 13:23 Urine Blood Neg (Negative) 12/21/23 13:23 Urine Nitrate Negative (Negative) 12/21/23 13:23 Urine Bilirubin Neg (Negative) 12/21/23 13:23 Urine Urobilinogen 1 mg/dL (Negative) H 12/21/23 13:23 Ur Leukocyte Esterase Trace (Negative) H 12/21/23 13:23 Urine RBC 0-2 /hpf (0-2) 12/21/23 13:23 Urine WBC 0-5 /hpf (0-5) 12/21/23 13:23 Ur Squamous Epith Cells 0-5 /hpf (0-5) 12/21/23 13:23 Amorphous Sediment Not Reportable 12/21/23 13:23 Urine Bacteria 1+ /hpf (NONE) H 12/21/23 13:23 Hyaline Casts 1.65 /lpf 12/21/23 13:23 Coronavirus (PCR) Negative (Negative) 12/21/23 12:00 Influenza A (PCR) Negative (Negative) 12/21/23 12:00 Influenza Type B (PCR) Negative (Negative) 12/21/23 12:00 RSV (PCR) Negative (Negative) 12/21/23 12:00 All radiology interpretation(s) finalized by discharge Discharge Plan Discharge Patient Disposition: Home Clinical Impression: Complaint of paresthesia, Hot flashes Condition: Stable Prescriptions: No Action tramadol 25 mg tablet 50 mg PO Q4H PRN (Reason: Pain) metoprolol succinate 25 mg tablet extended release 24 hr 12.5 mg PO DAILY Qty: 45 3RF isosorbide mononitrate 30 mg tablet extended release 24 hr 30 mg PO DAILY Qty: 90 3RF omeprazole 40 mg Capsule,Delayed Release(Dr/Ec) 40 mg PO DAILY acetaminophen 325 mg Capsule 325 mg PO QID Discharge Orders: Discharge ED (Routine); Ordered 12/21/23 Ordered By: Nay Leiva Referrals: Vivian Castorena M.D [Primary Care Provider] - Discharge Diet: Usual diet Discharge Activity: Increase activity as tolerated Patient Instructions: Paresthesia (ED), Opioid Safety, Pain Management Activity Restrictions/Additional Instructions: Thank you for choosing [facility] for your healthcare needs today. Please realize this is an emergency room and that we are providing you with a medical screening exam and this may not be complete and all inclusive of all the testing and or work up that you may need to determine your ailment or severity of your illness. You have been screened and evaluated and felt safe for discharge. Health conditions do change or evolve sometimes and as such it is important that you follow up with your Primary Doctor to be re checked, 3-5 days is a general good time frame for follow up. You are always welcome to return to the ED for re assessment if your symptoms are worsening or you have new concerns Coding Level of Care Code ED Line Clearance Foreman for Paul Owens
[2023-12-21 12:11] LABS: Troponin(5th) Baseline 10 ng/L (0-10)
[2023-12-21 12:14] LABS: Alanine Aminotransferase 23 U/L (0-33); Albumin Level 4.2 g/dL (3.5-5.2); Alkaline Phosphatase 156 U/L (35-105); Anion Gap 17.2 (5-19); Aspartate Amino Transferase 21 U/L (0-32); Blood Urea Nitrogen 20 mg/dL (8-23); Calcium 9.2 mg/dL (8.5-10.5); Carbon Dioxide 22 mmol/L (22-29); Chloride 105 mmol/L (98-107); Creatinine Clr Calc Pharmacy 83.9103; Globulin 2.5 g/dL (1.3-4.6); Glomerular Filtration Rate 85.8 mL/min (90-130); Glucose 131 mg/dL (65-115); Osmolality Calculated 294 mOsm/kg (285-295); Potassium 4.2 mmol/L (3.5-5.1); Sodium 140 mmol/L (136-145); Total Bilirubin 0.4 mg/dL (0.15-1.2); Total Protein 6.7 g/dL (6.6-8.7)
[2023-12-21 13:08] LABS: Covid PCR NEGATIVE (Negative); Influenza A NEGATIVE (Negative); Influenza B NEGATIVE (Negative); Respiratory Syncytial Virus Ce NEGATIVE (Negative)
--- NOTE | 2023-12-21 13:46 | ECG_ITS ---
[facility] Date[facility] 2023-12-21 Pat Name: Kerri Oh Department: Room: Gender: Female Head Tennis Coach: : 1955 Requested By: Nay Parada Order Number: [id number] Nicole MD: Perez Yung M.D. Measurements Intervals [place] Rate: 69 P: 43 AL: 175 QRS: -15 QRSD: 98 T: 31 QT: 381 QTc: 410 Interpretive Statements SINUS RHYTHM LOW QRS VOLTAGE IN PRECORDIAL LEADS MODERATE VOLTAGE CRITERIA FOR LVH, CONSIDER NORMAL VARIANT POSSIBLE ANTERIOR MYOCARDIAL INFARCTION , PROBABLY OLD Compared to ECG 12/21/2023 11:25:45 No significant changes Electronically Signed On 12-22-2023 16:06:51 PHYSICIAN OFFICE CLIN ASST by Perez Yung M.D. [id number]
[2023-12-21 13:49] LABS: Bacteria Urine 1+ /hpf; Hyaline Casts Urine 1.65 /lpf; RBC Urine 0-2 /hpf (0-2); Squamous Epithelial Cell Urine 0-5 /hpf (0-5); WBC Urine 0-5 /hpf (0-5)
[2023-12-21 13:52] LABS: Specific Gravity, Urine 1.025 (1.005-1.030); Urine Appearance Clear (CLEAR); Urine Color Yellow (Yellow); pH Urine 5 (5-7)
[2023-12-21 13:53] LABS: Add Urine Culture? No; Bilirubin Urine Neg (Negative); Blood Urine Neg (Negative); Glucose Urine UA Norm (Normal); Ketones Urine Negative (Negative); Leukocyte Esterase Urine Trace (Negative); Nitrate Urine Negative (Negative); Protein Urine Trace (Negative); Urobilinogen Urine 1 mg/dL (Negative)
[2023-12-21 14:23] LABS: Troponin 5 2HR 8.39 ng/L (0-10)
[2023-12-21 14:26] LABS: Troponin 5 2HR Delta -1.61 ABS# (0-10)
[2023-12-21 14:30] VITALS: BP 159/69; PULSE 75; RESP 16; O2SAT 100
== END 2023-12-21 14:29 | disposition home or self-care (01) ==
PROVIDERS: Emergency Provider Emergency Medicine; PCP Internal Medicine
DX: N95.1 Menopausal and female climacteric states (principal); R20.2 Paresthesia of skin; Z11.52 Encounter for screening for COVID-19
CPT/HCPCS: 0241U; 70450; 71045; 80053; 81001; 84484; 85025; 93005; 99285

== ENCOUNTER 2023-12-25 08:51 | Outpatient (CLI) | payer OTHER, SELFPAY ==
--- NOTE | 2023-12-25 09:00 | US_ITS ---
WS: [id number] Complete ABDOMINAL ULTRASOUND HISTORY: Abdominal pain COMPARISON: None available. Technically difficult evaluation of the abdominal structures. Liver: 16.9 cm in length. Liver appears normal size but there is coarse echotexture with hepatic stea tosis. No mass identified. Portal Vein: Normal hepatopetal flow with monophasic waveform. Gallbladder: Gallbladder is very poorly visualized. There is shadowing from the gallbladder fossa. Hi ghly suspicious for cholelithiasis. CBD: 0.4 cm Pancreas: Not visualized. Right kidney: 8.6 cm x 5.4 x 4.0 cm. Cortex:1.0 cm. Normal size and echogenicity. No hydronephrosis or mass. Left kidney: 9.2 cm x 3.8 cm x 4.0 cm. Cortex: 1.3 cm. Poorly visualized kidney. It would be difficult to exclude mass. Spleen: Not visualized. Aorta and IVC: Not visualized well. US/US abdomen complete* [id number] Impression: 1. Technically very difficult and limited evaluation of the abdominal structur es. 2. Cholelithiasis. It would be difficult to exclude acute cholecystitis but th ere is no bile duct dilatation or Brown sign. 3. Hepatic steatosis throughout the liver. 4. Poorly visualized LEFT kidney. Spleen is not visualized.
== END 2023-12-25 08:52 | disposition home or self-care (01) ==
LOC: RAD 08:51
PROVIDERS: PCP Internal Medicine; Visit Provider Internal Medicine Cardiovascular Disease
DX: K80.20 Calculus of gallbladder without cholecystitis without obstruction (principal); K76.0 Fatty (change of) liver, not elsewhere classified; R10.9 Unspecified abdominal pain
CPT/HCPCS: 76700

== ENCOUNTER 2024-01-04 13:30 | Outpatient (CLI) | payer OTHER, SELFPAY ==
[2024-01-04 15:41] LABS: Creatinine Urine, Random 468 mg/dL (28-217); Microalbumin Random Urine 22 ug/dL (0-20)
[2024-01-04 15:42] LABS: Microalbum Creatinine Ratio Ur 47 mg/dL (0-20)
== END 2024-01-04 13:31 | disposition home or self-care (01) ==
PROVIDERS: PCP Internal Medicine
DX: Z01.812 Encounter for preprocedural laboratory examination (principal)
CPT/HCPCS: 82044; 85025

== ENCOUNTER 2024-01-08 10:56 | Outpatient (CLI) | payer OTHER, SELFPAY ==
[2024-01-08 11:52] LABS: Basophils % 0.6 %; Eosinophils % 0.3 %; Hematocrit 40.5 % (36-47); Lymphocytes # 1.4 10^3/uL (0.8-4.8); Lymphocytes % 23.1 %; Mean Corpuscular HGB Conc 32.8 g/dL (30-55); Mean Corpuscular Volume 91.4 fl (85-98); Mean Platelet Volume 11.2 fL (7.4-10.4); Monocytes # 0.4 10^3/uL (0.2-0.9); Monocytes % 6.6 %; Neutrophils # 4.31 10^3/uL (1.8-7.7); Neutrophils % 69.1 %; Nucleated Red Blood Cells % 0 %; Platelet Count 240 10^3/cmm (157-399); Red Blood Count 4.43 10^6/uL (3.85-5.65); White Blood Count 6.24 10^3/uL (3.29-11.43)
[2024-01-08 12:25] LABS: Estmated Average Glucose 146; Hemoglobin A1C 6.7 % (4.0-6.0)
[2024-01-08 13:57] LABS: Alanine Aminotransferase 27 U/L (0-33); Albumin Level 4.1 g/dL (3.5-5.2); Alkaline Phosphatase 138 U/L (35-105); Anion Gap 17.1 (5-19); Aspartate Amino Transferase 24 U/L (0-32); Blood Urea Nitrogen 19 mg/dL (8-23); Calcium 9.7 mg/dL (8.5-10.5); Carbon Dioxide 22 mmol/L (22-29); Chloride 105 mmol/L (98-107); Cholesterol 203 mg/dL (0-200); Globulin 3.1 g/dL (1.3-4.6); Glomerular Filtration Rate 74.9 mL/min (90-130); Glucose 159 mg/dL (65-115); HDL Cholesterol 70 mg/dL (60-100); LDL Cholesterol Calculated 116 mg/dL (50-129); LDL HDL Ratio 1.66 RATIO (0.00-3.22); Osmolality Calculated 296 mOsm/kg (285-295); Potassium 4.1 mmol/L (3.5-5.1); Sodium 140 mmol/L (136-145); Total Bilirubin 0.2 mg/dL (0.15-1.2); Total Protein 7.2 g/dL (6.6-8.7); Triglycerides 83 mg/dL (0-150)
== END 2024-01-08 10:57 | disposition home or self-care (01) ==
LOC: LAB 10:58
PROVIDERS: PCP Internal Medicine
DX: Z01.812 Encounter for preprocedural laboratory examination (principal)
CPT/HCPCS: 36415; 80053; 80061; 83036; 85025

== ENCOUNTER 2024-06-12 09:35 | Outpatient (CLI) | payer OTHER, SELFPAY ==
--- NOTE | 2024-06-12 09:40 | MM_ITS ---
WS: [id number] Bilateral screening 3D tomosynthesis digital mammogram, 06/12/2024 9:46 AM Clinical Data: SCREENING Comparison: 05/09/2023, 08/12/2021, 07/30/2020, 04/21/2019, 07/26/2017, 07/25/2016. Findings: No spiculated masses or clustered calcifications are seen. There are no secondary signs of carcinoma. MM/MM scr BI tomosynthesis [id number] Impression: Negative bilateral mammogram unchanged. Recommend annual screening mammograms. BIRADS: 1 - Negative. FOLLOW UP: 1 Year Follow-up DENSITY: The breasts are almost entirely fatty. The CAD cloth checker was used
== END 2024-06-12 09:36 | disposition home or self-care (01) ==
PROVIDERS: PCP Internal Medicine; Visit Provider Internal Medicine
DX: Z12.31 Encounter for screening mammogram for malignant neoplasm of breast (principal); R92.313 Mammographic fatty tissue density, bilateral breasts
CPT/HCPCS: 77063; 77067

== ENCOUNTER → 2024-06-17 09:14 | Outpatient (BNVA) | payer OTHER, SELFPAY | PROVIDERS: PCP Internal Medicine; Visit Provider Nurse Practitioner Family | DX: R07.2 Precordial pain (principal); I10 Essential (primary) hypertension; R06.02 Shortness of breath; R10.11 Right upper quadrant pain | CPT/HCPCS: 99213 ==

== ENCOUNTER → 2024-06-17 09:55 | Outpatient (BNVA) | payer OTHER, SELFPAY | PROVIDERS: PCP Internal Medicine; Visit Provider Internal Medicine Cardiovascular Disease | DX: Z53.9 Procedure and treatment not carried out, unspecified reason (principal) | CPT/HCPCS: 99999 ==

== ENCOUNTER 2024-06-23 14:51 | Outpatient (CLI) | payer OTHER, SELFPAY ==
--- NOTE | 2024-06-23 14:59 | XR_ITS ---
WS: [id number] SCREENING DEXA SCAN [facility] CLINICAL INFORMATION: POST MENOPAUSAL COMPARISON: None. FINDINGS: The L1-L4 bone mineral density measures 1.230 g/cm2. This corresponds to a T score score of 0.4 and Z score of 0.2. Left femoral neck bone mineral density measures 0.983 g/cm2. This corresponds to a T score of -0.2 and Z score of -0.5. Right femoral neck bone mineral density measures 1.001 g/cm2. This corresponds to a T score -0.1of and Z score of -0.3. Mean femoral neck bone mineral density measures 0.992 g/cm2. This corresponds to a T score of -0.1 and Z score of -0.4. XR/XR DEXA axial skeleton* [id number] IMPRESSION: Normal bone mineralization. Patient's FRAX calculated 10 year probability for major osteoporotic fracture i s 3.9% and osteoporotic hip fracture is 0.5%.
== END 2024-06-23 14:52 | disposition home or self-care (01) ==
PROVIDERS: PCP Internal Medicine; Visit Provider Family Medicine
DX: Z78.0 Asymptomatic menopausal state (principal)
CPT/HCPCS: 77080

== ENCOUNTER → 2024-07-10 08:12 | Outpatient (BNVA) | payer OTHER, SELFPAY | PROVIDERS: PCP Internal Medicine; Visit Provider Student in an Organized Health Care Education/Training Program | DX: K82.9 Disease of gallbladder, unspecified (principal) | CPT/HCPCS: 99204 ==

== ENCOUNTER 2024-07-14 08:00 | Outpatient (CLI) | payer OTHER, SELFPAY ==
--- NOTE | 2024-07-14 | ECG_ITS ---
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 Interpretive Statements LEXISCAN SESTAMIBI STRESS TEST Procedure: At the baseline, the blood pressure was 140/49 mmHg with a heart rate of 64 bpm. The electrocardiogram showed normal sinus rhythm, normal axis with normal ST and T's. The Lexiscan was infused over a period of 20 seconds. A total of 0.4 mg of Lexiscan was infused. The stress phase was continued for a total of 5 minutes. Heart rate was at the end of stress phase was 83 bpm and a blood pressure of 128/59 mmHg. The EKG at the peak infusion revealed normal sinus rhythm with no significant ST-T wave changes. Sestamibi was injected 20 seconds after the Lexiscan infusion. Blood pressure at the end of recovery phase was 129/49 mmHg with a heart rate of 83 bpm. Conclusion: 1. Normal EKG response to Lexiscan infusion 2. No Lexiscan induced chest pain or cardiac arrhythmia. 3. Normal blood pressure and heart rate response. 4. Sestamibi/sestamibi perfusion scan pending; see separate report. Electronically Signed On 07-25-2024 15:36:35 CDT by Saulo Hamilton M.D. [email or web address] [email or web address]
[2024-07-14 08:06] VITALS: BMI 37.5
--- NOTE | 2024-07-14 08:13 | NMCV_ITS ---
NM harjit perf SPECT r/s* [id number] Kerri Oh Age: 69 Gender: F : 1955 Exam Date: 07/14/2024 08:59 Ordering Phys: Vivian Castorena M.D Technologist: KIMBERLY Zaragoza Exam Location: [facility] Indications: cp STRESS TEST Please [facility] IMAGE PROTOCOL Rest/Stress 1 Lexiscan Day Radiopharmaceutical Dose (mCi) Administration Site Administered by Rest: Tc-99m 10.9 IV KIMBERLY Zaragoza Sestamibi Stress:Tc-99m 33 IV KIMBERLY Smith Sestamibi Rest: 14-Jul-2024 60 Discovery 630 Stress: 14-Jul-2024 30 Discovery 630 0.4mg Lexiscan. Images obtained in supine and prone position. SPECT RESULTS Technical Quality: Good Raw Data Analysis: Normal Image Corrections: No attenuation or motion correction applied Summed Stress Score: 3 Summed Rest Score: 5 Summed Difference Score: 0 PERFUSION FINDINGS Small area of fixed perfusion defect seen in the inferolateral wall.This improves on prone imaging. Likely attenuation artifact. No evidence of ischemia. FUNCTIONAL RESULTS (calculated via Gated SPECT) Stress Image LV EF (%): 65 Stress EDV (mL):97 TID: 0.81 Stress ESV (mL):34 FUNCTIONAL FINDINGS: There is normal left ventricular systolic function. IMPRESSIONS 1. Small area of attenuation artifact in inferolateral wall. Less likely related to prior infarct. No evidence of ischemia 2. LV systolic function is normal Saulo Hamilton MD (Electronically Signed) Final Date: 21 July 2024 10:08 S
[2024-07-14] MEDS: regadenoson 0.4 Mg/5 ml Syringe IVP (09:35)
== END 2024-07-14 08:01 | disposition home or self-care (01) ==
LOC: CDL 08:01
PROVIDERS: PCP Internal Medicine; Visit Provider Family Medicine
DX: R07.9 Chest pain, unspecified (principal); R93.1 Abnormal findings on diagnostic imaging of heart and coronary circulation
CPT/HCPCS: 36415; 78452; 96374; A9500; J2785

== ENCOUNTER 2024-07-23 13:42 | Emergency (ER) | payer OTHER, MEDICARE, SELFPAY ==
[2024-07-23 13:57] VITALS: BP 144/86; PULSE 73; RESP 18; TEMP 36.6; O2SAT 98; BMI 37.5
--- NOTE | 2024-07-23 14:03 | ECG_ITS ---
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 Measurements Intervals [place] Rate: 70 P: 62 TN: 162 QRS: 0 QRSD: 96 T: 28 QT: 369 QTc: 399 Interpretive Statements SINUS RHYTHM LOW QRS VOLTAGE IN PRECORDIAL LEADS [QRS DEFLECTION < 1.0 mV IN CHEST LEADS] POSSIBLE ANTERIOR MYOCARDIAL INFARCTION , PROBABLY OLD [30 ms Q WAVE IN V3/V4, OR R < 0.2 mV IN V4] Compared to ECG 12/21/2023 13:46:11 No significant changes Electronically Signed On 07-23-2024 22:12:47 CDT by Brenda Schmidt M.D. [email or web address]
--- NOTE | 2024-07-23 14:21 | ED_ITS ---
HPI - Recheck/Abnormal Lab/Rx 2 General: Chief Complaint: Recheck/Abnormal Lab/Rx Stated Complaint: [facility] sent NA+/ K+ elevated Time Seen by Provider: 07/23/24 14:21 History of Present Illness: 69-year-old female directed to the emerg ency room from the [facility] with complaints of hypernatremia and hyperkalemia Related Data Home Medications ?Medication ?Instructions ?Recorded ?Confirmed tramadol 25 mg tablet 50 mg PO Q4H PRN Pain 07/10/24 acetaminophen 325 mg capsule 325 mg PO QID 12/21/23 omeprazole 40 mg capsule,delayed 40 mg PO DAILY 07/10/24 release Previous Rx's ?Medication ?Instructions ?Recorded metoprolol succinate 25 mg 12.5 mg (1/2 x 25 mg) PO DA JESSEE #45 12/07/23 tablet,extended release 24 hr tabs Allergies Allergy/AdvReac Type Severity Reaction Status Date / Time aspirin Allergy ADR-Cramping Verified 07/23/24 14:02 of the Muscles hydrocortisone Allergy Unknown Verified 07/23/24 14:02 nickel Allergy Unknown Verified 07/23/24 14:02 Sulfa (Sulfonamide Allergy Unknown Verified 07/23/24 14:02 Antibiotics) Review of Systems 2 Const: Denies: fever(s) or chills Card: Denies: chest pain Resp: Denies: dyspnea GI: Denies: abdominal pain : Denies: dysuria, urinary frequency or urinary urgency Musc: Denies: neck pain or back pain Skin/Breast: Denies: rash PFSH ED 2 PFSH: Social History Smoking and tobacco/nicotine status: never used tobacco/nicotine Physical Exam 2 Const: GENERAL APPEARANCE: cooperative ORIENTATION/CONSCIOUSNESS: Yes awake, Yes oriented to person, Yes oriented to place and Yes oriented to time HENMT: COMMON NORMALS: normocephalic, atraumatic and hearing grossly normal bilaterally HEAD & SCALP: normocephalic and atraumatic Resp: COMMON NORMALS: normal respiratory effort, No retractions, No use of accessory muscles and clear to auscultation bilaterally AUSCULTATION: clear to auscultation bilaterally Cardio: COMMON NORMALS: regular rate, regular rhythm and No murmurs present (Cardio) RATE: regular rate RHYTHM: regular rhythm GI: COMMON NORMALS: Soft to palpation and No hepatosplenomegaly present A USCULTATION: Yes normoactive bowel sounds PALPATION: Yes Soft to palpation, No Tenderness to palpation present (GI), No Guarding due to palpation present (GI) and Yes No hepatosplenomegaly present Extremity: COMMON NORMALS: normal to inspection, capillary refill normal, no clubbing, cyanosis or edema, no calf tenderness and no pedal edema Neuro: SENSORIUM/ORIENTATION: Yes oriented to person, Yes oriented to place and Yes oriented to time Skin: COMMON NORMALS: no rashes or lesions noted GENERAL SKIN EXAM: no rashes or lesions noted Course 2 Vital Signs: Vital signs: Vital Signs Temperature 97.8 F 07/23/24 13:57 Pulse Rate 73 07/23/24 13:57 Respiratory Rate 18 07/23/24 13:57 Blood Pressure 144/86 07/23/24 13:57 Pulse Oximetry 98 07/23/24 13:57 Oxygen Delivery Me thod Room Air 07/23/24 13:57 MDM - Recheck/Abnormal Lab/Rx Medical Decision Making Repeat labs today after sodium potassium are in the normal ranges her kidney function is in the normal range is about where she usually has been running in the past. She is otherwise feels fine vital signs are stable discharge home encouraged her to follow-up with her primary care doctor to repeat these labs again in 7 to 10 days sooner if she is having any symptoms or feeling abnormal. Medical Records I reviewed the patient's medical records. Lab Data I reviewed the patient's lab results. 07/23/24 14:28 07/23/24 14:28 Radiology Impressions Chest X-Ray 07/23/24 14:50 Impression: Atherosclerosis. Laboratory Results WBC 5.03 10^3/uL (3.29-11.43) 07/23/24 14:28 RBC 4.77 10^6/uL (3.85-5.65) 07/23/24 14:28 Hgb 14.20 g/dL (11.27-16.99) 07/23/24 14:28 Hct 44.3 % (36-47) 07/23/24 14:28 MCV 92.9 fl (85-98) 07/23/24 14:28 MCH 29.8 pg (27-33) 07/23/24 14:28 MCHC 32.1 g/dL (30-55) 07/23/24 14: RDW 13.8 % (12.1-15.1) 07/23/24 14: Plt Count 203 10^3/cmm (157-399) 07/23/24 14: MPV 11.4 fL (7.4-10.4) H 07/23/24 14:28 Neut % (Auto) 60.2 % 07/23/24 14:28 Lymph % (Auto) 29.8 % 07/23/24 14:28 [place] % (Auto) 8.2 % 07/23/24 14: Eos % (Auto) 0.8 % 07/23/24 14: Baso % (Auto) 0.8 % 07/23/24 14: Neut # (Auto) 3.03 10^3/uL (1.8-7.7) 07/23/24 14: Lymph # (Auto) 1.5 10^3/uL (0.8-4.8) 07/23/24 14:28 [place] # (Auto) 0.4 10^3/uL (0.2-0.9) 07/23/24 14: Eos # (Auto) 0.0 10^3/uL (0.0-0.8) 07/23/24 14: Baso # (Auto) 0.0 10^3/uL (0.0-0.1) 07/23/24 14: Nucleated RBC % (auto) 0 % 07/23/24 14: Nucleated RBCs # 0.0 /100WBC 07/23/24 14:28 Sodium 141 mmol/L (136-145) 07/23/24 14:28 Potassium 3.9 mmol/L (3.5-5.1) 07/23/24 14: Chloride 106 mmol/L (98-107) 07/23/24 14: Carbon Dioxide 21 mmol/L (22-29) L 07/23/24 14:28 Anion Gap 17.9 (5-19) 07/23/24 14:28 BUN 23 mg/dL (8-23) 07/23/24 14:28 Creatinine 1.0 mg/dL (0.5-0.9) H 07/23/24 14:28 GFR Calculation Not Reportable 07/23/24 14:28 Glucose 124 mg/dL (65-115) H 07/23/24 14:28 Calculated Osmolality 297 mOsm/kg (285-295) H 07/23/24 14:28 Calcium 10.0 mg/dL (8.5-10.5) 07/23/24 14:28 Magnesium 2.4 mg/dL (1.7-2.3) H 07/23/24 14:28 Total Bilirubin 0.5 mg/dL (0.15-1.2) 07/23/24 14:28 AST 22 U/L (0-32) 07/23/24 14:28 ALT 19 U/L (0-33) 07/23/24 14:28 Alkaline Phosphatase 152 U/L (35-105) H 07/23/24 14:28 Total Protein 7.5 g/dL (6.6-8.7) 07/23/24 14:28 Albumin 4.2 g/dL (3.5-5.2) 07/23/24 14:28 Globulin 3.3 g/dL (1.3-4.6) 07/23/24 14:28 No radiology studies performed this visit Discharge Plan Discharge Patient Disposition: Home Clinical Impression: Abnormal laboratory test Condition: Stable Prescriptions: No Action tramadol 25 mg tablet 50 mg PO Q4H PRN (Reason: Pain) metoprolol succinate 25 mg tablet extended release 24 hr 12.5 mg PO DAILY Qty: 45 3RF omeprazole 40 mg Capsule,Delayed Release(Dr/Ec) 40 mg PO DAILY acetaminophen 325 mg Capsule 325 mg PO QID Discharge Orders: Discharge ED (Routine); Ordered 07/23/24 Ordered By: Filemon Matt Referrals: Vivian Castorena M.D [Primary Care Provider] Discharge Diet: Usual diet Discharge Activity: Resume usual activity Patient Instructions: Opioid Safety, Pain Management Activity Restrictions/Additional Instructions: Thank you for choosing [facility] for your healthcare needs today. It is very important that you follow up as instructed or that you return to the Emergency Department should you have concerns or if your condition changes or worsens in any way. You were seen in the emergency room with concerns about previously abnormal lab tests. Your sodium today was 141 your potassium was 3.9. These are within the normal ranges for these electrolytes. Your creatinine was 1.0 which is also normal for you. Your magnesium was slightly elevated but not clinically significant at this time. Follow-up with your primary care doctor within the next 7 to 10 days to have these reevaluated. There is no emergent condition at this time. Print Language: Iraqi Coding Level of Care Code ED Clinical Data Specialist for Paul Owens
[2024-07-23 14:33] LABS: Basophils % 0.8 %; Eosinophils % 0.8 %; Hematocrit 44.3 % (36-47); Lymphocytes # 1.5 10^3/uL (0.8-4.8); Lymphocytes % 29.8 %; Mean Corpuscular HGB Conc 32.1 g/dL (30-55); Mean Corpuscular Hemoglobin 29.8 pg (27-33); Mean Corpuscular Volume 92.9 fl (85-98); Mean Platelet Volume 11.4 fL (7.4-10.4); Monocytes # 0.4 10^3/uL (0.2-0.9); Monocytes % 8.2 %; Neutrophils # 3.03 10^3/uL (1.8-7.7); Neutrophils % 60.2 %; Nucleated Red Blood Cells % 0 %; Platelet Count 203 10^3/cmm (157-399); Red Blood Count 4.77 10^6/uL (3.85-5.65); Red Cell Distribution Width 13.8 % (12.1-15.1); White Blood Count 5.03 10^3/uL (3.29-11.43)
--- NOTE | 2024-07-23 14:50 | XR_ITS ---
WS: [id number] Portable AP upright chest, 07/23/2024 Clinical Data: dyspnea/cough Comparison: Portable chest, 12/21/2023 Findings: No nodules, masses or effusions are seen. The heart is normal. The pulmonary vascularity is not increased. No pneumonia or pneumothorax is seen. The aortic arch and descending thoracic aorta show mild tortuosity. Monitor leads are on the chest wall. XR/XR chest 1V portable [id number] Impression: Atherosclerosis.
[2024-07-23 14:52] LABS: Alanine Aminotransferase 19 U/L (0-33); Albumin Level 4.2 g/dL (3.5-5.2); Alkaline Phosphatase 152 U/L (35-105); Anion Gap 17.9 (5-19); Aspartate Amino Transferase 22 U/L (0-32); Blood Urea Nitrogen 23 mg/dL (8-23); Carbon Dioxide 21 mmol/L (22-29); Chloride 106 mmol/L (98-107); Creatinine Clr Calc Pharmacy 65.5779; Globulin 3.3 g/dL (1.3-4.6); Glucose 124 mg/dL (65-115); Magnesium 2.4 mg/dL (1.7-2.3); Osmolality Calculated 297 mOsm/kg (285-295); Potassium 3.9 mmol/L (3.5-5.1); Sodium 141 mmol/L (136-145); Total Bilirubin 0.5 mg/dL (0.15-1.2); Total Protein 7.5 g/dL (6.6-8.7)
--- NOTE | 2024-07-23 15:44 | PC.PHAR ---
Pt did not know her home medications. Called [facility] [phone] and verified all medications and otc's with [facility].
[2024-07-23 15:47] VITALS: BP 122/96; PULSE 67; O2SAT 97
== END 2024-07-23 15:50 | disposition home or self-care (01) ==
PROVIDERS: Emergency Provider Family Medicine; PCP Internal Medicine
DX: E87.0 Hyperosmolality and hypernatremia (principal); E87.5 Hyperkalemia
CPT/HCPCS: 36415; 71045; 80053; 83735; 85025; 93005; 99285

== ENCOUNTER → 2024-08-28 13:28 | Outpatient (BNVA) | payer OTHER, SELFPAY | PROVIDERS: PCP Internal Medicine; Visit Provider Orthopaedic Surgery | DX: M50.322 Other cervical disc degeneration at C5-C6 level (principal); M50.323 Other cervical disc degeneration at C6-C7 level | CPT/HCPCS: 72050; 99203 ==

== ENCOUNTER → 2024-09-22 15:02 | Outpatient (BNVA) | payer OTHER, SELFPAY | PROVIDERS: PCP Internal Medicine; Visit Provider Internal Medicine Cardiovascular Disease | DX: R07.9 Chest pain, unspecified (principal); K80.20 Calculus of gallbladder without cholecystitis without obstruction; R94.39 Abnormal result of other cardiovascular function study | CPT/HCPCS: 99214 ==

== ENCOUNTER 2024-09-23 12:14 | Outpatient (CLI) | payer OTHER, SELFPAY ==
--- NOTE | 2024-09-23 12:23 | CT_ITS ---
WS: [id number] CTA NECK TECHNIQUE: Contrast enhanced CTA of the neck with coronal and sagittal reformatted images and maximum intensity projection (MIP) images. NASCET criteria utilized. CLINICAL INFORMATION: CHEST PAIN COMPARISON: None. DLP: 251.[address] scans at [facility] use at least one of these dose optimization techniques: automated exposure control; mA and/or kV adjustment per patient size (includes targeted exams where dose is matched to clinical indication); or iterative reconstruction. FINDINGS: RIGHT: RIGHT common carotid artery is patent. Mild atheromatous plaque RIGHT carotid bulb. No significant RIGHT ICA stenosis. RIGHT ICA is patent to the skull base. LEFT: LEFT common carotid artery is patent. No significant LEFT ICA stenosis. LEFT ICA is patent to the skull base. LEFT dominant vertebral artery. Smaller but patent RIGHT vertebral artery. Basilar artery is patent. Proximal subclavian arteries are patent. Multinodular thyroid. Lung apices are well aerated. Enlarged submental lymph nodes measuring up to 1.5 cm. This is indeterminate and recommend clinical correlation. A few prominent level 2 cervical lymph nodes. 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 This can be followed up with cervical spine MRI. CT/CT angio neck 13376 IMPRESSION: 1. No significant cervical ICA stenosis bilaterally. 2. LEFT dominant vertebral artery. 3. Multinodular thyroid. 4. Enlarged submental lymph nodes measuring up to 1.5 cm. This is indeterminat e and recommend clinical correlation and correlation with history. A few promin ent level 2 cervical lymph nodes. Findings could be followed up with contrast-e nhanced neck CT. 5. 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 This can be followed up with cervical spine MRI.
[2024-09-23] MEDS: iohexol 350 mg/mL 500 mL Btl (per mL) IV (13:01)
== END 2024-09-23 12:15 | disposition home or self-care (01) ==
LOC: RAD 12:14
PROVIDERS: PCP Internal Medicine; Visit Provider Family Medicine
DX: R07.9 Chest pain, unspecified (principal); E04.2 Nontoxic multinodular goiter; R59.0 Localized enlarged lymph nodes; M48.8X2 Other specified spondylopathies, cervical region; M48.02 Spinal stenosis, cervical region
CPT/HCPCS: 70498

== ENCOUNTER 2024-10-07 13:51 | Outpatient (CLI) | payer OTHER, SELFPAY ==
[2024-10-07 14:50] LABS: Hematocrit 44.2 % (36-47); Hemoglobin 14.50 g/dL (11.27-16.99); Mean Corpuscular HGB Conc 32.8 g/dL (30-55); Mean Corpuscular Hemoglobin 30.1 pg (27-33); Mean Corpuscular Volume 91.7 fl (85-98); Nucleated Red Blood Cells % 0 %; Platelet Count 244 10^3/cmm (157-399); Red Blood Count 4.82 10^6/uL (3.85-5.65); White Blood Count 7.27 10^3/uL (3.29-11.43)
[2024-10-07 15:01] LABS: INR 0.96 (0.83-1.21)
[2024-10-07 15:06] LABS: Anion Gap 13.8 (5-19); Blood Urea Nitrogen 25 mg/dL (8-23); Calcium 10.2 mg/dL (8.5-10.5); Carbon Dioxide 23 mmol/L (22-29); Chloride 103 mmol/L (98-107); Glucose 112 mg/dL (65-115); Osmolality Calculated 287 mOsm/kg (285-295); Potassium 3.8 mmol/L (3.5-5.1); Sodium 136 mmol/L (136-145)
== END 2024-10-07 13:52 | disposition home or self-care (01) ==
LOC: LAB 13:52
PROVIDERS: PCP Internal Medicine; Visit Provider Internal Medicine Cardiovascular Disease
DX: R58 Hemorrhage, not elsewhere classified (principal); I10 Essential (primary) hypertension; R06.02 Shortness of breath; R07.2 Precordial pain; M48.02 Spinal stenosis, cervical region; M54.2 Cervicalgia
CPT/HCPCS: 36415; 80048; 85025; 85610; 99214

== ENCOUNTER 2024-11-04 09:11 | Outpatient (CLI) | payer OTHER, SELFPAY ==
[2024-11-04] VITALS (22 sets, daily range): BP systolic 130–166; BP diastolic 66–93; PULSE 60–79; RESP 10–23; TEMP 36.6–36.7; O2SAT 96–97; BMI 37.7
--- NOTE | 2024-11-04 08:15 | XACV_ITS ---
Exam Room: 2 Ht: 170 cm Wt: 109 kg BSA: 2.32 m2 Gender: Female : 1955 Any Known Allergies: Other Exam Priority: Routine Procedure(s): Procedure Description: Diagnostic procedure Procedure Description: Left Heart Catheterization Procedure Description: Left ventriculography Procedure Description: Coronary Angiography Russel STEELE; Diagnostic Cath Status: Elective Diagnostic Findings * No disease noted in the Left Main, Left Anterior Descending, Right, or Circumflex coronary arteries. * Coronary angiography shows right dominance. PCI Indication: Other Interventional Findings * 1-Return to inpatient for close monitoring and routine cath care 2-Risk factor modification for secondary prevention 3-Statin and aspirin 81 mg life-long, if tolerated 5-Continue optimal medical management 6-Follow up with Dr. Goode in four weeks and your primary care in 10 days. Conclusions 1. No disease noted in the Left Main, Left Anterior Descending, Right, or Circumflex coronary arteries. 2. Normal left ventricular systolic function. Ejection fraction of 60%. Recommendations * Continue current medical management and risk factor modification. Diagnostic RX Recommendation: medical therapy and/or counseling LV EDP: 11 mmHg Ventriculography Ejection Fraction: 60.0 % Pressures Phase:Rest AO : 130 / 67 ( 92 ) @ 12:28:00 PM 131 / 55 ( 87 ) @ 12:38:00 PM LV : 135 / -11 @ 12:37:00 PM 135 / -13 / 11 @ 12:38:00 PM 134 / -13 / 12 @ 12:38:00 PM Valves Phase:DefaultPhase AV : 3.0 @ 11:46:11 AM AV Mean Gradient: 8.0 @ 11:46:11 AM Clinical Evaluation EBL: 5mL-10mL Procedural Details Procedure Consent Obtained. Current Diagnosis : Chest Pain. Pre-Procedure Time Out. Identified patient by full name and date of as verbalized by the patient/guarantor. Does the consent match the physician's order: Yes. Accurate & Complete Informed Consent: Yes. Inpatient/Outpatient History & Physical on Chart: Yes. If H&P is completed, is and addenduem needed: No; If yes, is the addendum complete: N/A. Visualize and Verify Site with Patient/Guarantor: N/A. Relevant Radiology Images available: Yes. Pre-op teaching completed and patient verbalized understanding. The risks, benefits, and alternatives of sedation and/or procedure were discussed by physician. The patient agrees to continue. Procedure started. Physician arrived. [facility] Clinical Fraility Score: 3: Managing Well. Bilingual Call Center Representative Indications: Worsening Angina. Chest Pain Symptom Assessment: Typical Angina Symptoms. Correct patient, site and procedure confirmed by cath team. Current diagnosis: Chest Pain. PERRLA. Strong, equal hand outside b2b sales bilaterally. Lungs clear x 5 lobes. IV Site on Arrival: 20 gauge in the left anticubital. IV Fluids: 0.9% NaCl at KVO. 0 mL infused prior to labor economics professor. Pre Procedural Pulses: bilateral dorsalis pedis was 3+. Pre Procedural Pulses: bilateral posterior tibial was 3+. Pre Procedural Pulses: bilateral radial was 3+. Oxygen started at 2liters/min via nasal canula. right groin was prepped with chloroprep then draped in the usual sterile fashion. right radial was prepped with chloroprep then draped in the usual sterile fashion. Baseline sample Acquired. HR: 51 BPM. Physician scrubbed in. Immediate Pre-Procedure Time Out. Correct Patient: Yes; Correct Procedure: Yes; Correct Site: Yes; Correct Patient Position: Yes; Correct Supplies: Yes; Dried Flammable Prep: Yes; Blood Products Available: No;. Lidocaine 1% infiltrated to the right radial. Arterial access obtained. A 5 [place] TIG catheter in over wire. Multiple views taken of left coronary artery. Catheter redirected to the RCA. Multiple views taken of right coronary artery. Catheter removed over the exchange wire. A 5 [place] Angled Pig catheter in over wire. EDP Sample taken: LV 135/-12,11; HR: 70 BPM; SpO2: 98%. LV gram performed in RAZA @ 10 mL/second for a total of 30 mL. EDP Sample taken: LV 135/-13,11; HR: 69 BPM; SpO2: 98%. Pullback taken: LV 134/-14,12; AO 131/55(87); Mean: 8mmHg, Peak to Peak: 3mmHg, SEP: 21sec/min; HR: 67 BPM; SpO2: 98%. Catheter removed over the exchange wire. A TR Band was successful obtaining hemostatsis at the Right Radial artery insertion site. Physician scrubbed out. Post Procedure: Pulses reassessed and unchanged. PERRLA. Strong, equal hand outside b2b sales bilaterally. No VTE prophylaxis required. Medication's Wasted: Lidocaine 1% = 18 mL. Medication's Wasted: Nitro = 49.8 mg. Medication's Wasted: Heparin = 1000 units. Medication's Wasted: Other = Versed 1 mg, Fentanyl 25mcg. Total IV fluids: 30 mL. Post-op diagnosis: Normal Coronaries. Complications: None. Estimated blood loss: 5mL-10mL. Responsiveness - Normal response to verbal stimuli; alert and oriented, PERRLA. Airway - Unaffected, no intervention required; spontaneous ventilation. Circulation: W/N/L, pulses unchanged. Nausea/Vomiting: No. Procedure completed. Patient transferred by wheelchair to 1st floor. Vital chart was stopped. Access Site Site: Right Radial artery Sheath Size: 6 Fr Hemostasis Method: TR Band Hemostasis Success: Successful Procedure Medications Start: 11:19 AM Stop: 11: AM Medication: Versed Amount: 1 mg Route: I.V. Start: 11:19 AM Stop: 11:19 AM Medication: Fentanyl Amount: 50 mcg Route: I.V. Start: 11: AM Stop: 11:26 AM Medication: Nitrogylcerin Amount: 200 mcg Route: I.A. Start: 11:27 AM Stop: 11:27 AM Medication: Fentanyl Amount: 25 mcg Route: I.V. Start: 11: AM Stop: : AM Medication: Heparin Amount: 5000 units Route: I.V. I, the attending physician, have reviewed and verified all procedure medications. Yes, all medications given per verbal order History/Risk Factors Hypertension: Yes Dyslipidemia: No Peripheral Arterial Disease (PAD): No Myocardial Infarction ([place]): No Obesity: No Renal Disease: No Tobacco Use: Never Prior Interventions PCI: No CABG: No Valve Surgery: No Report Signatures Finalized by Liz Goode MD on 11/04/2024 12:05 PM
[2024-11-04 09:46] LABS: Hematocrit 44.8 % (36-47); Hemoglobin 14.50 g/dL (11.27-16.99); Mean Corpuscular HGB Conc 32.4 g/dL (30-55); Mean Corpuscular Hemoglobin 29.8 pg (27-33); Mean Corpuscular Volume 92.0 fl (85-98); Nucleated Red Blood Cells % 0 %; Platelet Count 235 10^3/cmm (157-399); Red Blood Count 4.87 10^6/uL (3.85-5.65); White Blood Count 7.22 10^3/uL (3.29-11.43)
[2024-11-04 10:10] LABS: Anion Gap 18.0 (5-19); Blood Urea Nitrogen 25 mg/dL (8-23); Calcium 9.8 mg/dL (8.5-10.5); Carbon Dioxide 21 mmol/L (22-29); Chloride 103 mmol/L (98-107); Creatinine Clr Calc Pharmacy 65.7258; Glucose 139 mg/dL (65-115); Osmolality Calculated 293 mOsm/kg (285-295); Potassium 4.0 mmol/L (3.5-5.1); Sodium 138 mmol/L (136-145)
--- NOTE | 2024-11-04 11:16 | W.PM.OPSFHP ---
Same Day Surgery H&P Indication for Procedure/HPI DATE OF PROCEDURE: November 04, 2024 CHIEF COMPLAINT/INDICATIONFOR SURGICAL PROCEDURE: Abnormal stress test Worsening of shortness of breath along with chest pressure PREOP DIAGNOSIS: Abnormal stress test, worsening of shortness of breath or chest pain PLANNED PROCEDURE: Operation Date: 11/04/24 10:00 Proposed Procedures p Cardiac Catheterization - [facility] w/wo LV & Coros(Left) - Liz Goode MD 69-year-old female past medical history significant for hypertension hyperlipidemia worsening of shortness of breath chest pain underwent dobutamine stress echo which was negative however patient did not want to do angiogram medical management was opted for six 7-month despite of that she continues to have symptoms nuclear scan was performed which showed no significant ischemia however since patient symptoms has worsened with increasing shortness of breath which is more than usual thought to be angina equivalent patient would like to do something given her 1 abnormal stress test and worsening of symptoms after discussion we decided to proceed with left heart cath. Medications/Allergies* Home Medications ?Medication ?Instructions ?Recorded ?Confirmed ?Type omeprazole 40 mg capsule,delayed 40 mg PO BID 12/21/23 11/04/24 History release carboxymethylcellulose sodium 1 drp ophthalmic (eye) BID 07/23/24 11/04/24 History carboxymethylcellulose sodium 1 % 1 drp ophthalmic (eye) BID 07/23/24 11/04/24 History eye gel in a dropperette diclofenac sodium 1 % topical gel 4 g topical QID PRN joint pain 07/23/24 11/04/24 History empagliflozin 25 mg tablet 12.5 mg PO QAM 07/23/24 11/04/24 History (Jardiance) ipratropium bromide 21 mcg (0.03 2 spray intranasal TID 07/23/24 11/04/24 History %) nasal spray lidocaine 5 % topical patch 2 patch topical DAILY 07/23/24 11/04/24 History polyvinyl alcohol-povidone (PF) 1 drp ophthalmic (eye) QID 07/23/24 11/04/24 History 1.4 %-0.6 % eye drops in a dropperette (Refresh Classic (PF)) riboflavin (vitamin B2) 100 mg 400 mg PO DAILY 07/23/24 11/04/24 History tablet topiramate 25 mg tablet 75 mg PO BID migraine prevention 07/23/24 11/04/24 History tramadol 50 mg tablet 25 mg PO BID PRN Pain 07/23/24 11/04/24 History cholecalciferol (vitamin D3) 10 10 mcg PO DAILY 09/22/24 11/04/24 History mcg (400 unit) capsule duloxetine 30 mg capsule,delayed 30 mg PO DAILY 09/22/24 11/04/24 History release magnesium oxide 400 mg PO DAILY 09/22/24 11/04/24 History eswsbyygbw-oqahwwhpwudtg-zeujnzzc 1 tab PO Q6H PRN Headache 11/04/24 11/04/24 History 50 mg-325 mg-40 mg tablet Allergies/Adverse Reactions Allergy/AdvReac Type Severity Reaction Status Date / Time aspirin Allergy ADR-Cramping Verified 10/07/24 13:17 of the Muscles hydrocortisone Allergy Unknown Verified 10/07/24 13:17 nickel Allergy Unknown Verified 10/07/24 13:17 Sulfa (Sulfonamide Allergy Unknown Verified 10/07/24 13:17 Antibiotics) Current Medications: Generic Name Dose Route Start Last Admin Trade Name Ezioq PRN Reason Stop Dose Admin Sodium Chloride 1,000 mls @ 50 mls/hr 11/04/24 08:15 11/04/24 09:30 Sodium Chloride 0.9% IV 11/05/24 04:14 Not Given .Q20H ONE Pertinent History/Comorbid Conditions* Social History Smoking and tobacco/nicotine status: never used tobacco/nicotine Pertinent Exam Findings alert, oriented x 3, clear to auscultation bilaterally, regular rate & rhythm, operative site marked and procedure specific exam findings Conscious Sedation Assessment PATIENT ASSESSED PRIOR TO SEDATION, WITH NO CHANGE NOTED: Yes AIRWAY EVAL/ANESTHESIA PLAN: ASA II, Risks, benefits & alternatives of sedation and/or procedure discussed and Patient agrees to continue as planned ADDITIONAL INFORMATION: All risk-benefit and alternative for the procedure has been explained to the patient. Patient understand 2% risk of stroke major bleed. Patient understand 5% risk of minor bleeding oozing infection hematoma contrast-induced nephropathy urgent or emergent vascular or bypass surgery. Patient agrees to it and would like to proceed with it. Recommendations Surgery/Procedure today Coding Level of Care Code Acute Code for Chg Fwd
--- NOTE | 2024-11-04 14:40 | PC.NURSE ---
Patient arrived to CSU from mechanical laboratory technician at 1200. Patient arrived via wheelchair with TR band intact to R wrist. TR band removed per protocol no bleeding or hematoma formation. Patient educated regarding activity restrictions
[2024-11-05 00:50] VITALS: BP 158/87; PULSE 66; RESP 25; TEMP 36.8; O2SAT 98
[2024-11-05 05:46] VITALS: BP 107/78; PULSE 62; RESP 20; TEMP 36.7; O2SAT 98
--- NOTE | 2024-11-05 07:38 | PC.NURSE ---
Dressing to right wrist remains c,d,i without s/s of bleeding or hematoma formation observed. Patient denies pain to site. No distress observed.
[2024-11-05 09:36] VITALS: BP 134/68; PULSE 88; RESP 18; TEMP 36.6; O2SAT 98
--- NOTE | 2024-11-05 09:43 | PC.CHAP ---
Pastoral Care Encounter/Spiritual Assessment Type of Contact [] Declined material damage adjuster visit [] Patient/Family/Request visit [] Outpatient visit [] Follow-up visit [] Physician referral [] Code/Alert [x] Routine visit [] Staff referral [] Actively dying [] Patient sleeping [] Family support [] [] Out of room [] Palliative care [] [] Receiving care in room [] Pre-surgical visit [] Trauma [] Long length of stay [] ICU visit [] Other: Relational/Emotional Strength [x] Patient feels connected with others/family/visitors/staff [] Distress [] Loneliness/isolation [] Abandonment Spirituality of Patient [x] Person of Julia [] Attends Latter Day of their Julia [x] Believes in Prayer [] Reads Bible or Hindu materials [] There are Spiritual issues to be addressed Paper Feeder Interventions [x] Prayer [x] Active listening [x] Non-anxious presence [x] Spiritual/emotional support [] Crisis/trauma care [] Spiritual counseling [] Bereavement support [] Provided bereavement packet [] Provided Bible/devotional materials [] Provided toy/stuffed animal, coloring book to patient or family member [] Provided Communion [] Anointing/[place] [] Salvation [x] Completed spiritual assessment [] Other: Impact on Illness or Injury [] Angry [] Fearful [] Anxious [] Often cries [] Exhaustion [] Unable to work [] Unable to attend zoroastrianism [] Unable to walk/stand [] Unable to read [] Unable to drive [] Unable to eat/drink [] Unable to sleep [] Unable to be with family [] Patient intubated [] Other: Summary Time spent with patient 5 min
--- NOTE | 2024-11-05 11:26 | P.DS_ITS ---
Discharge Providers Date of Admission: 11/04/2024 Date of Discharge: November 05, 2024 Attending Provider at Admission: Liz Goode MD Attending Provider at Discharge: Liz Goode MD Primary Care Provider: Moira Pascal MD Reason for Visit Reason for Visit: R94.39 Brief History: Kerri Oh is a 69-year-old female with past medical history of gallstones exertional dyspnea and chest pain. She was evaluated with a Lexiscan stress test in July of this year which showed likely attenuation artifact in the inferolateral wall with normal LV function. She was then seen in the clinic by Dr. Goode and due to persistent shortness of breath with exertion coronary angiogram was recommended. Hospital Course Hospital Course She was brought to the hospital yesterday for coronary angiogram revealing no disease in the left main, LAD, RCA or circumflex coronary arteries. Continue aspirin and statin therapy. No complications with right radial cath site. Creatinine 1.0 today, down from 1.1 yesterday. She will discharge home today. She can follow-up with Dr. Goode in the clinic in 6 months. Physical Exam Const: COMMON NORMALS: no acute distress and patient oriented x3 GENERAL APPEARANCE: cooperative ORIENTATION/CONSCIOUSNESS: Yes awake, Yes oriented to person, Yes oriented to place and Yes oriented to time Chest: COMMONS NORMALS: normal inspection of the chest and normal palpation of entire chest wall CHEST: Yes Symmetrical chest wall rise Resp: COMMON NORMALS: normal respiratory effort, No retractions, No use of accessory muscles and clear to auscultation bilaterally AUSCULTATION: clear to auscultation bilaterally Cardio: COMMON NORMALS: regular rate, regular rhythm, S1 normal heart sound present, S2 normal heart sound present, No gallops present (Cardio), No clicks present (Cardio), No murmurs present (Cardio) and No rub (Cardio) RATE: regular rate RHYTHM: regular rhythm HEART SOUNDS: S1 normal heart sound present and S2 normal heart sound present PERIPHERAL PULSES: radial pulses present positive right 2+ and femoral pulses present positive right 2+ Neuro: COMMON NORMALS: patient oriented x3 and moves all extremities SENSORIUM/ORIENTATION: Yes oriented to person, Yes oriented to place and Yes oriented to time Skin: WOUNDS: Yes surgical site (no hematoma palpable) Details: no odor Discharge Data Studies Completed and Pending Completed Studies During Hospitalization Category Date Time Status 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 request for service Routine Exams 11/04/24 08:15 Completed Laboratory Results WBC 7.22 10^3/uL (3.29-11.43) 11/04/24 09:40 RBC 4.87 10^6/uL (3.85-5.65) 11/04/24 09:40 Hgb 14.50 g/dL (11.27-16.99) 11/04/24 09:40 Hct 44.8 % (36-47) 11/04/24 09:40 MCV 92.0 fl (85-98) 11/04/24 09:40 MCH 29.8 pg (27-33) 11/04/24 09:40 MCHC 32.4 g/dL (30-55) 11/04/24 09:40 RDW 13.5 % (12.1-15.1) 11/04/24 09:40 Plt Count 235 10^3/cmm (157-399) 11/04/24 09:40 MPV 11.2 fL (7.4-10.4) H 11/04/24 09:40 Neut % (Auto) 62.1 % 11/04/24 09:40 Lymph % (Auto) 29.1 % 11/04/24 09:40 [place] % (Auto) 6.9 % 11/04/24 09:40 Eos % (Auto) 0.8 % 11/04/24 09:40 Baso % (Auto) 0.8 % 11/04/24 09:40 Neut # (Auto) 4.48 10^3/uL (1.8-7.7) 11/04/24 09:40 Lymph # (Auto) 2.1 10^3/uL (0.8-4.8) 11/04/24 09:40 [place] # (Auto) 0.5 10^3/uL (0.2-0.9) 11/04/24 09:40 Eos # (Auto) 0.1 10^3/uL (0.0-0.8) 11/04/24 09:40 Baso # (Auto) 0.1 10^3/uL (0.0-0.1) 11/04/24 09:40 Nucleated RBC % (auto) 0 % 11/04/24 09:40 Nucleated RBCs # 0.0 /100WBC 11/04/24 09:40 Sodium 138 mmol/L (136-145) 11/04/24 09:40 Potassium 4.0 mmol/L (3.5-5.1) 11/04/24 09:40 Chloride 103 mmol/L (98-107) 11/04/24 09:40 Carbon Dioxide 21 mmol/L (22-29) L 11/04/24 09:40 Anion Gap 18.0 (5-19) 11/04/24 09:40 BUN 25 mg/dL (8-23) H 11/04/24 09:40 Creatinine 1.0 mg/dL (0.5-0.9) H 11/04/24 09:40 GFR Calculation Not Reportable 11/04/24 09:40 Glucose 139 mg/dL (65-115) H 11/04/24 09:40 Calculated Osmolality 293 mOsm/kg (285-295) 11/04/24 09:40 Calcium 9.8 mg/dL (8.5-10.5) 11/04/24 09:40 Vitals Last Vital Signs Temp 97.8 F 11/05/24 09:36 Pulse 88 11/05/24 09:36 Resp 18 11/05/24 09:36 BP 134/68 11/05/24 09:36 Pulse Ox 98 11/05/24 09:36 O2 Del Method Room Air 11/05/24 05:46 Discharge Plan Discharge Patient Disposition: Home Prescriptions: Continued metoprolol succinate 25 mg tablet extended release 24 hr 12.5 mg PO DAILY Qty: 45 3RF cholecalciferol (vitamin D3) 10 mcg (400 unit) capsule 10 mcg PO DAILY duloxetine 30 mg capsule,delayed release(DR/EC) 30 mg PO DAILY magnesium oxide 400 mg magnesium tablet 400 mg PO DAILY omeprazole 40 mg Capsule,Delayed Release(Dr/Ec) 40 mg PO BID riboflavin (vitamin B2) 100 mg Tablet 400 mg PO DAILY topiramate 25 mg Tablet 75 mg PO BID tramadol 50 mg Tablet 25 mg PO BID PRN (Reason: Pain) lidocaine 5 % Adhesive Patch,Medicated 2 patch TOPICAL DAILY Rx Instructions: leave on most painful area for up to 12 hrs ipratropium bromide 21 mcg (0.03 %) [place],Non-Aerosol 2 spray INTRANASAL TID Rx Instructions: administer into each nostril Refresh Classic (PF) 1.4-0.6 % Dropperette 1 drp OPHTHALMIC (EYE) QID carboxymethylcellulose sodium 1 % Dropperette,Gel 1 drp OPHTHALMIC (EYE) BID diclofenac sodium 1 % Gel 4 g TOPICAL QID PRN (Reason: joint pain) Rx Instructions: apply to single knee, ankle, foot; for foot includes sole/toes/top of foot carboxymethylcellulose sodium Drops 1 drp OPHTHALMIC (EYE) BID Jardiance 25 mg Tablet 12.5 mg PO QAM [id number] [Fioricet] 50-325-40 mg Tablet 1 tab PO Q6H PRN (Reason: Headache) Discharge Order = DC NOW: Discharge Order (Routine); Ordered 11/05/24 Ordered By: Cierra Marcos Referrals: Liz Goode MD [Physician, Cardiology] - 05/04/25 2:00 pm Moira Pascal MD [Referring, Unknown] Referral Note: Dr. Pascal is now located in [place], [place] Per the clinic [facility] has faxed discharge order to office for review. If pt hasn't heard from the office in two bussiness days please call [phone] to schedule appt Diet: Cardiac Activity: Increase activity as tolerated Patient Instructions: Post Angiogram Home Care Instructions Activity Restrictions/Additional Instructions: No lifting of more than gallon of milk for the next couple of days. No driving for next 24 hours. Once radial band off and no hematoma patient can be discharged. Follow-up with cardiology as usual nonurgent Print Language: American Discharge Attestations Time Spent in Discharge Care*: less than 30 min Quality Metrics Clinical Quality Measures [ No reported AMI, CVA or VTE this stay] Coding Level of Care Code Acute Code for Chg Fwd
--- NOTE | 2024-11-05 11:48 | PC.NURSE ---
Patient discharged to home. Instructed patient on follow up needs and site care with restrictions. No medication changes. Patient verbalized complete understanding. IV and telemetry removed for discharged. Right wrist dressing remains c,d,i without s/s of bleeding or hematoma formation observed. Patient denies pain or needs. No distress observed. Patient taken by wheelchair to private vehicle.
[2024-11-05 14:24] LABS: Cholesterol 256 mg/dL (0-200); HDL Cholesterol 70 mg/dL (60-100); Triglycerides 110 mg/dL (0-150)
== END 2024-11-05 11:50 | disposition home or self-care (01) ==
LOC: CCL 09:36 → CSU 11:59
PROVIDERS: Nurse Practitioner Family; PCP Family Medicine; Visit Provider Internal Medicine Cardiovascular Disease
DX: R07.9 Chest pain, unspecified (principal); R06.02 Shortness of breath; R94.39 Abnormal result of other cardiovascular function study; K21.9 Gastro-esophageal reflux disease without esophagitis; I10 Essential (primary) hypertension
CPT/HCPCS: 36415; 80048; 80061; 85025; 93458; 99152; 99153; C1769; C1887; C1894; J1644; J2250; J3010; J3490; J7030; J9999; Q0163; Q9967

== ENCOUNTER → 2024-12-08 13:02 | Outpatient (BNVA) | payer OTHER, SELFPAY | PROVIDERS: PCP Family Medicine; Visit Provider Anesthesiology Pain Medicine | DX: M54.9 Dorsalgia, unspecified (principal) | CPT/HCPCS: 99205 ==

== ENCOUNTER → 2024-12-15 13:40 | Outpatient (BNVA) | payer OTHER, SELFPAY | PROVIDERS: PCP Family Medicine; Visit Provider Anesthesiology Pain Medicine | DX: M79.18 Myalgia, other site (principal); M54.2 Cervicalgia; M54.9 Dorsalgia, unspecified | CPT/HCPCS: 20553; 99214; J1010; J3490 ==

== ENCOUNTER → 2024-12-29 10:58 | Outpatient (BNVA) | payer OTHER, SELFPAY | PROVIDERS: PCP Family Medicine; Referring Provider Family Medicine; Visit Provider Anesthesiology Pain Medicine | DX: M47.816 Spondylosis without myelopathy or radiculopathy, lumbar region (principal); F17.200 Nicotine dependence, unspecified, uncomplicated | CPT/HCPCS: 99214 ==

== ENCOUNTER → 2024-12-30 08:40 | Outpatient (BNVA) | payer OTHER, SELFPAY | PROVIDERS: PCP Family Medicine; Visit Provider Anesthesiology Pain Medicine | DX: M79.18 Myalgia, other site (principal); M47.816 Spondylosis without myelopathy or radiculopathy, lumbar region | CPT/HCPCS: 20553; 99215; J1010; J3490 ==

== ENCOUNTER → 2025-01-06 13:10 | Outpatient (BNVA) | payer OTHER, SELFPAY | PROVIDERS: PCP Family Medicine; Visit Provider Orthopaedic Surgery | DX: M47.816 Spondylosis without myelopathy or radiculopathy, lumbar region (principal) | CPT/HCPCS: 99213 ==

== ENCOUNTER → 2025-01-12 13:37 | Outpatient (BNVA) | payer OTHER, SELFPAY | PROVIDERS: PCP Family Medicine; Visit Provider Anesthesiology Pain Medicine | DX: M54.2 Cervicalgia (principal); M47.816 Spondylosis without myelopathy or radiculopathy, lumbar region; F17.200 Nicotine dependence, unspecified, uncomplicated | CPT/HCPCS: 99215 ==